=== PATIENT | female | born 1990 | race Caucasian/White ===

== ENCOUNTER 2019-05-16 10:20 | Outpatient (CLI) | payer BC, SELFPAY ==
--- NOTE | 2019-05-16 10:35 | XR_ITS ---
WS: [id number] Left wrist, 3 views, 05/16/2019 Clinical Data: L WRIST PAIN/OSTEOARTHRITIS Comparison: None. Findings: No fractures or dislocations are seen. The carpal bones are intact. There is no soft tissue swelling. The distal radius and ulna are not remarkable. XR/XR wrist LT min 3V* [id number] Impression: Negative left wrist.
== END 2019-05-16 10:21 | disposition home or self-care (01) ==
LOC: RAD 10:25
PROVIDERS: Family Provider Family Medicine; PCP Family Medicine; Visit Provider Nurse Practitioner Family
DX: M25.532 Pain in left wrist (principal)
CPT/HCPCS: 73110

== ENCOUNTER → 2019-09-08 09:50 | Outpatient (BNVA) | payer BC, SELFPAY | PROVIDERS: Family Provider Family Medicine; PCP Family Medicine; Visit Provider Obstetrics & Gynecology | DX: Z01.419 Encounter for gynecological examination (general) (routine) without abnormal findings (principal); Z78.9 Other specified health status | CPT/HCPCS: 88175 ==

== ENCOUNTER → 2019-09-24 10:38 | Outpatient (BNVA) | payer BC, SELFPAY | PROVIDERS: Family Provider Family Medicine; PCP Family Medicine; Visit Provider Specialist | DX: M25.532 Pain in left wrist (principal) | CPT/HCPCS: 73110 ==

== ENCOUNTER 2019-10-14 07:50 | Outpatient (CLI) | payer BC, SELFPAY ==
--- NOTE | 2019-10-14 08:09 | MR_ITS ---
WS: [id number] INDICATION: Left wrist pain. Fell off horse. TECHNIQUE: MRI left wrist gadolinium enhancement. Multiplanar multisequence imaging with coronal axia l and sagittal noncontrast coronal T1, coronal PD fat sat, and coronal STIR imaging. Coronal 3-D FSPG R. Axial T2 fat sat. Axial PD. Sagittal T1. FINDINGS: Normal anatomic alignment. Vitamin E markers in the area of concern. Normal radiocarpal dwight nt. Normal scaphoid and lunate. Subchondral cystic change at the radial scaphoid and radiolunate narciso culations. Normal scapholunate interval. TFCC is normal in appearance. Normal ulna collateral and rad ial collateral ligaments. Radial styloid is normal in appearance. Normal DRUJ Proximal and distal carpal row are otherwise normal in appearance. Partially visualized metacarpals a re normal in appearance. Distal radius and ulna are normal. Normal carpal tunnel. Normal extensor and flexor retinaculum. Extensor carpi ulnaris is normal in shelly earance. No other significant findings. MR/MR wrist LT wo con* [id number] IMPRESSION: 1. No evidence of avascular necrosis. Mild degenerative cystic changes involvi ng the radial scaphoid and radial lunate articulations. 2. Normal scapholunate interval and scapholunate ligaments. 3. Normal TFCC and DRUJ. 4. Ulnar collateral and radial collateral ligaments are normal in appearance. 5. Normal extensor and flexor compartment tendons and carpal tunnel. 6. No other significant findings.
== END 2019-10-14 07:51 | disposition home or self-care (01) ==
PROVIDERS: Family Provider Family Medicine; PCP Family Medicine; Visit Provider Specialist
DX: M25.532 Pain in left wrist (principal); W19.XXXA Unspecified fall, initial encounter
CPT/HCPCS: 73221

== ENCOUNTER → 2020-05-11 09:29 | Outpatient (BNVA) | payer BC, SELFPAY | PROVIDERS: Family Provider Family Medicine; PCP Family Medicine; Visit Provider Obstetrics & Gynecology | DX: Z32.01 Encounter for pregnancy test, result positive (principal) | CPT/HCPCS: 81025 ==

== ENCOUNTER → 2020-06-08 13:59 | Outpatient (BNVA) | payer BC, MEDICAID, SELFPAY | PROVIDERS: Family Provider Family Medicine; PCP Family Medicine; Visit Provider Obstetrics & Gynecology | DX: O09.91 Supervision of high risk pregnancy, unspecified, first trimester (principal) | CPT/HCPCS: 80307; 84315; 85025; 86592; 86762; 86803; 86850; 86900; 87086; 87340 ==

== ENCOUNTER → 2020-06-23 11:51 | Outpatient (BNVA) | payer BC, MEDICAID, SELFPAY | PROVIDERS: Family Provider Family Medicine; PCP Family Medicine; Visit Provider Obstetrics & Gynecology | DX: O99.611 Diseases of the digestive system complicating pregnancy, first trimester; Z12.4 Encounter for screening for malignant neoplasm of cervix; O99.211 Obesity complicating pregnancy, first trimester; O34.219 Maternal care for unspecified type scar from previous cesarean delivery; K90.0 Celiac disease; Z3A.12 12 weeks gestation of pregnancy | CPT/HCPCS: 84315; 87491; 87591; 88175 ==

== ENCOUNTER → 2020-10-18 14:59 | Outpatient (BNVA) | payer BC, MEDICAID, SELFPAY | PROVIDERS: Family Provider Family Medicine; PCP Family Medicine; Visit Provider Obstetrics & Gynecology | DX: O09.92 Supervision of high risk pregnancy, unspecified, second trimester (principal); Z3A.00 Weeks of gestation of pregnancy not specified | CPT/HCPCS: 82950; 85025 ==

== ENCOUNTER → 2020-12-09 09:05 | Outpatient (BNVA) | payer BC, MEDICAID, SELFPAY | PROVIDERS: Family Provider Family Medicine; PCP Family Medicine; Visit Provider Obstetrics & Gynecology | DX: O09.92 Supervision of high risk pregnancy, unspecified, second trimester (principal); Z3A.00 Weeks of gestation of pregnancy not specified | CPT/HCPCS: 84315; 87081 ==

== ENCOUNTER 2020-12-18 06:20 | Inpatient (IN) | payer BC, MEDICAID, SELFPAY ==
[2020-12-17] VITALS (9 sets, daily range): BP systolic 125–145; BP diastolic 69–91; PULSE 82–93; RESP 16–17; TEMP 36.9–37.2; O2SAT 97–99; BMI 36.5
[2020-12-17 15:39] LABS: Charge for UA Resulting for Rev
[2020-12-17 15:44] LABS: Basophils % 0.2 %; Eosinophils # 0.1 10^3/uL (0.0-0.8); Eosinophils % 1.3 %; Hematocrit 34.2 % (37.0-47.0); Hemoglobin 11.5 g/dL (11.5-15.3); Lymphocytes # 1.6 10^3/uL (0.8-4.8); Lymphocytes % 14.3 %; Mean Corpuscular HGB Conc 33.6 g/dL (30.0-36.0); Mean Corpuscular Hemoglobin 28.9 pg (28.0-34.0); Mean Corpuscular Volume 85.9 fl (81-99); Mean Platelet Volume 10.2 fL (7.4-10.4); Monocytes # 0.5 10^3/uL (0.2-0.9); Monocytes % 4.8 %; Neutrophils # 8.71 10^3/uL (1.8-7.7); Neutrophils % 78.5 %; Nucleated Red Blood Cells % 0 %; Platelet Count 276 10^3/cmm (130-400); Red Blood Count 3.98 10^6/uL (4.1-5.3); Red Cell Distribution Width 13.4 % (12.1-15.1); White Blood Count 11.1 10^3/uL (4.0-10.0)
[2020-12-17 16:06] LABS: Add Urine Microscopic? YES; Bilirubin Urine Neg (Negative); Blood Urine Neg (Negative); Glucose Urine UA Norm (Normal); Ketones Urine Negative (Negative); Leukocyte Esterase Urine 1+ (Negative); Nitrate Urine Negative (Negative); Protein Urine Neg (Negative); Specific Gravity, Urine 1.005 (1.005-1.030); Urine Appearance SL Hazy (CLEAR); Urine Color Straw (Yellow); Urobilinogen Urine Norm (Negative); pH Urine 7 (5-7)
[2020-12-17 16:12] LABS: WBC Urine 0-4 /hpf (0-5)
[2020-12-17 16:13] LABS: Add Urine Culture? No; Bacteria Urine TRACE /hpf
[2020-12-17 16:17] LABS: Alanine Aminotransferase 8 U/L (0-33); Albumin Level 3.2 g/dL (3.5-5.2); Alkaline Phosphatase 188 IU/L (35-105); Anion Gap 14.6 (5-19); Aspartate Amino Transferase 10 U/L (0-32); Blood Urea Nitrogen 4 mg/dL (6-20); Calcium 8.3 mg/dL (8.5-10.5); Carbon Dioxide 21 mmol/L (22-29); Chloride 103 mmol/L (98-107); Globulin 2.8 g/dL (1.3-4.6); Glucose 95 mg/dL (65-115); Osmolality Calculated 277 mOsm/kg (285-295); Potassium 3.6 mmol/L (3.5-5.1); Sodium 135 mmol/L (136-145); Total Bilirubin 0.2 mg/dL (0.15-1.2); Uric Acid 3.6 mg/dL (2.4-5.7)
[2020-12-17 16:19] LABS: Urine Creatinine 37 mg/dL (28-217); Urine Protein Random 6 mg/dL
[2020-12-17 16:23] LABS: UPRO/UCREAT Ratio 0.16 mg/mg CR
--- NOTE | 2020-12-17 21:20 | PM.OPHPUD ---
Labor & Delivery H&P Update Date of Procedure: December 17, 2020 Date H&P Performed: 12/16/20 H&P update information: I have reviewed H&P completed within last 30 days, I have examined patient prior to procedure and Changes to prior documentation as noted here Changes to previous documentation: The patient has elevated blood pressures and had some decelerations while in triage. Preeclampsia work up is negative. Admission Diagnosis: Preop diagnosis: iup at 37 2/7 weeks.
--- NOTE | 2020-12-17 21:51 | PC.NURSE ---
Vital signs obtained at this time. Pt was in a right lateral position upon entering the room. Patient moved to a semi fowlers position for bp. No further needs were voiced by patient and significant other at this time.
[2020-12-18] VITALS (15 sets, daily range): BP systolic 111–138; BP diastolic 63–89; PULSE 72–92; RESP 16–17; TEMP 35.9–36.8; O2SAT 98–99
--- NOTE | 2020-12-18 06:12 | PM.PN ---
Vitals/I&O/Wt Last Vital Signs Temp 96.6 F L 12/18/20 06:08 Pulse 74 12/18/20 04:00 Resp 16 12/18/20 04:00 BP 111/63 12/18/20 04:00 Pulse Ox 98 12/18/20 04:00 Weight last 48 hrs Weight 233 lb Physical Exam Narrative: EXAM NARRATIVE: The patient denies any concerns this morning. Blood pressures have all been normal over night. The patient states that she was unable to sleep overnight. We discussed plan for induction today. Plan easi cath placement today. Const: COMMON NORMALS: no acute distress, average body habitus, patient oriented x3, no limitations, healthy appearing, alert and well nourished GENERAL APPEARANCE: cooperative, comfortable, well kempt and well developed ORIENTATION/CONSCIOUSNESS: Yes awake, Yes oriented to person, Yes oriented to place and Yes oriented to time Resp: COMMON NORMALS: normal respiratory effort EFFORT & INSPECTION: Yes able to speak in complete sentences GI: COMMON NORMALS: Soft to palpation and non-tender PALPATION: Yes Soft to palpation Extremity: COMMON NORMALS: no clubbing, cyanosis or edema and no calf tenderness Neuro: COMMON NORMALS: patient oriented x3 SENSORIUM/ORIENTATION: Yes alert, Yes oriented to person, Yes oriented to place and Yes oriented to time Psych: APPEARANCE: Yes well kempt Data : 12/17/20 15:25 12/17/20 15:25 Attestations Medical Necessity Statement*: The patient will be here at least two midnights Coding Level of Care Code Acute 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
[2020-12-18] MEDS: diphenhydrAMINE 25 mg Capsule PO (23:56)
[2020-12-19] VITALS (120 sets, daily range): BP systolic 98–152; BP diastolic 53–101; PULSE 71–110; RESP 17; TEMP 36.8–37.1
--- NOTE | 2020-12-19 00:35 | PM.OBGYPN ---
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 Her blood pressures have remained normal with an occasional high. status is overall very reassuring with category 1 tracing. Labor: Amniotic Membrane Status: Intact Monitor Mode: External Contraction Pattern: Absent Vitals/I&O/Wt Last Vital Signs Temp 98.1 F 12/18/20 20:00 Pulse 90 12/18/20 20:00 Resp 16 12/18/20 20:00 BP 138/89 12/18/20 20:00 Pulse Ox 98 12/18/20 20:00 Weight last 48 hrs Weight 233 lb Physical Exam : MANUAL OB EXAM: dilated 3 cm and effaced 75% AMNIOTIC FLUID: clear OTHER: AROM clear to start induction. Data : 12/17/20 15:25 12/17/20 15:25 A&P Assessment and plan (1) Desires (vaginal after ) trial: induction started with AROM due to status cervix has made significant change from clinic Status: Acute (2) GBS (group B Streptococcus carrier), +RV culture, currently : start ampicillin prophylaxis Status: Acute (3) Labile blood pressure: continue to monitor no signs or symptoms of preeclampsia. Status: Acute Attestations Medical Necessity Statement*: she has already been here two midnights. Coding Level of Care Code Acute Public Health Professor for Chg Fwd Diagnoses Desires (vaginal after ) trial O34.219 GBS (group B Streptococcus carrier), +RV culture, currently O99.820 Labile blood pressure R09.89
[2020-12-19 01:50] LABS: Basophils % 0.3 %; Eosinophils # 0.1 10^3/uL (0.0-0.8); Eosinophils % 1.2 %; Hematocrit 35.7 % (37.0-47.0); Hemoglobin 11.8 g/dL (11.5-15.3); Lymphocytes # 2.1 10^3/uL (0.8-4.8); Lymphocytes % 20.2 %; Mean Corpuscular HGB Conc 33.1 g/dL (30.0-36.0); Mean Corpuscular Hemoglobin 28.6 pg (28.0-34.0); Mean Corpuscular Volume 86.7 fl (81-99); Mean Platelet Volume 10.6 fL (7.4-10.4); Monocytes # 0.5 10^3/uL (0.2-0.9); Monocytes % 4.7 %; Neutrophils # 7.63 10^3/uL (1.8-7.7); Neutrophils % 72.6 %; Nucleated Red Blood Cells % 0 %; Platelet Count 266 10^3/cmm (130-400); Red Blood Count 4.12 10^6/uL (4.1-5.3); Red Cell Distribution Width 13.6 % (12.1-15.1); White Blood Count 10.5 10^3/uL (4.0-10.0)
[2020-12-19] MEDS: dextrose 5%-lactated ringers 1,000 ML 125 ML IV ×2 (02:03→13:04)
[2020-12-19] MEDS: ampicillin 2,000 MG in sodium chloride 0.9% (plus) 50 ML 100 MG IV (02:03)
[2020-12-19] MEDS: lactated ringers 1,000 ML 999 ML IV (04:00)
--- NOTE | 2020-12-19 04:58 | P.ANESASSM_ITS ---
Pre-Anesthetic Assessment Pre-Anesthetic Assessment: Height/Weight: Height 1.7 m Weight 105.687 kg Temp Pulse Resp BP Pulse Ox 98.2 F 80 16 113/69 99 12/18/20 22:00 12/19/20 04:46 12/18/20 22:00 12/19/20 04:46 12/18/20 22:00 Preop Diagnosis: iup at 37 2/7 weeks. Proposed Procedure: epidural Was Beta David taken within 24 hours: N/A Was Clonidine taken within 24 hours: N/A Social: Social History: No alcohol and No tobacco Exam: Pre-Anes Outpt Exam: alert, oriented x 3, clear to auscultation bilaterally and regular rate & rhythm Airway: Submandibular: WNL Cervical ROM: WNL MP: 2 Dentition: Full Pulmonary: Pulmonary: None reported CV/HEM: CV/HEM: HTN : : None reported Hepatic: Hepatic: None reported GI: GI: GERD Metabolic: Metabolic: None reported Musc/skel: Musc/skel: None reported Neuropsych: Neuropsych: Anxiety Anesthetic Plan: ASA status: 2 Anesthesia: Regional (specify below) Risk of > 500 ml blood loss (7ml/kg in children): No Meds/Allergies Current Medications: Current Medications Generic Name Dose Route Start Last Admin Trade Name Freq PRN Reason Stop Dose Admin Diphenhydramine HC l 25 mg 12/18/20 23:23 12/18/20 23:56 Diphenhydramine 25 Mg Capsule PO 25 mg Q4H PRN Administration ITCHING Dextrose/Lactated Ringer's 1,000 mls @ 125 m ls/hr 12/19/20 00:45 12/19/20 02:03 Dextrose 5%-Lact ated Ringers IV 125 mls/hr .Q8H RONALD Administration PFSH Anesthesia PFSH: Medical History Celiac disease No pertinent past medical history neghx:htn,dm,thyroid,dvt/pe,herpes. 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 Surgical History H/O section (~2017) Family History Father Heart disease Mother Skin cancer Diabetes Hyperlipidemia Grandmother Breast cancer Paternal grandmother Denies family history of Colon cancer Ovarian cancer Family history of thyroid problem Hypertension Uterine cancer Stroke Social History Smoking and tobacco status: never smoked Alcohol intake: never Female Reproductive History: : 3 Data Anesthesia CBC & Chem 7: 12/19/20 01:00 12/17/20 15:25 Other Labs: Laboratory Results - last 48 hr 12/17/20 12/17/20 12/17/20 15:25 15:25 15:25 WBC 11.1 H RBC 3.98 L Hgb 11.5 Hct 34.2 L MCV 85.9 MCH 28.9 MCHC 33.6 RDW 13.4 Plt Count 276 MPV 10.2 Neut % (Auto) 78.5 Lymph % (Auto) 14.3 Schleicher % (Auto) 4.8 Eos % (Auto) 1.3 Baso % (Auto) 0.2 Neut # (Auto) 8.71 H Lymph # (Auto) 1.6 Schleicher # (Auto) 0.5 Eos # (Auto) 0.1 Baso # (Auto) 0.0 Nucleated RBC % (auto) 0 Nucleated RBCs # 0.0 Sodium Potassium Chloride Carbon Dioxide Anion Gap BUN Creatinine GFR Calculation Glucose Calculated Osmolality Uric Acid Calcium Total Bilirubin AST ALT Alkaline Phosphatase Total Protein Albumin Globulin Urine Color Straw Urine Appearance Sl hazy Urine pH 7 Ur Specific Premium 1.005 Urine Protein Neg Urine Glucose (UA) Norm Urine Ketones Negative Urine Blood Neg Urine Nitrate Negative Urine Bilirubin Neg Urine Urobilinogen Norm Ur Leukocyte Esterase 1+ H Urine RBC Not Reportable Urine WBC 0-4 H Ur Squamous Epith Cells 5-10 H Amorphous Sediment Not Reportable Urine Bacteria Trace U Random Total Protein 6 Urine Creatinine 37 Protein/Creatinin Ratio 0.16 12/17/20 12/19/20 15:25 01:00 WBC 10.5 H RBC 4.12 Hgb 11.8 Hct 35.7 L MCV 86.7 MCH 28.6 MCHC 33.1 RDW 13.6 Plt Count 266 MPV 10.6 H Neut % (Auto) 72.6 Lymph % (Auto) 20.2 Schleicher % (Auto) 4.7 Eos % (Auto) 1.2 Baso % (Auto) 0.3 Neut # (Auto) 7.63 Lymph # (Auto) 2.1 Schleicher # (Auto) 0.5 Eos # (Auto) 0.1 Baso # (Auto) 0.0 Nucleated RBC % (auto) 0 Nucleated RBCs # 0.0 Sodium 135 L Potassium 3.6 Chloride 103 Carbon Dioxide 21 L Anion Gap 14.6 BUN 4 L Creatinine 0.3 L GFR Calculation 263.0 H Glucose 95 Calculated Osmolality 277 L Uric Acid 3.6 Calcium 8.3 L Total Bilirubin 0.2 AST 10 ALT 8 Alkaline Phosphatase 188 H Total Protein 6.0 L Albumin 3.2 L Globulin 2.8 Urine Color Urine Appearance Urine pH Ur Specific Premium Urine Protein Urine Glucose (UA) Urine Ketones Urine Blood Urine Nitrate Urine Bilirubin Urine Urobilinogen Ur Leukocyte Esterase Urine RBC Urine WBC Ur Squamous Epith Cells Amorphous Sediment Urine Bacteria U Random Total Protein Urine Creatinine Protein/Creatinin Ratio Cardiac Studies: No Data to Display
--- NOTE | 2020-12-19 05:43 | ANES.PROC ---
Anesthesia Procedures Procedure/Date: 12/19/20 epidural Procedure Narrative: epidural complete, attempts x 2, bolus given, epidural pump initiated with FIELD TECHNICAL ASSISTANT education given, vitals taken during procedure using OBIX system and satisfactory throughout, patient admits to decrease pain, report of procedure to OB RN Epidural: Time Out Performed: Yes Consents Signed: Procedure Consent Consent: requested by attending/covering physician, from patient, risks and benefits reviewed and patient agrees to proceed Lumbar Level: L3-L4 Epidural position: sitting Epidural procedure: sterile prep of area, 1% lidocaine to numb the area (3 mL), 18 g needle, negative for paresthesia passed, neg for paresthesia, test dose given, 1.5% xylocaine 1:200k epi (5 mL), 0.2% Ropivacaine bolus ml (5 mL), placed PCEA, no systemic response, sterile dressing applied, L.U.D. no apparent complications and 0.2% Ropiavacaine @ mls/hr (13 mL/hr)
[2020-12-19] MEDS: ampicillin 1,000 MG in sodium chloride 0.9% (plus) 50 ML 100 MG IV ×4 (06:03→19:07)
[2020-12-19] MEDS: ondansetron 2 mg/ML SDV 2 mL 4 MG IVP (10:13)
[2020-12-19] MEDS: oxytocin 30 UNIT/500 ML BAG IV (11:39)
--- NOTE | 2020-12-19 20:27 | PM.DELIVERY ---
Delivery Note: Date of delivery: December 19, 2020 Pre-delivery diagnoses: iup at 37 3/7 weeks, labile blood pressures Post-delivery diagnoses: same- delivered Procedure: Op report anesthesia: Epidural Delivering Physician: mariia Estimated blood loss (mL): 25 Findings: term male in the cephalic presentation. 5 doses of Ampicillin for GBS prophylaxis Pre-Delivery Course: The patient was admitted for induction at term for labile blood pressures. There were no beds available and so the patient was admitted as antipartum and monitored until an induction could be started. She had cervical change and she was 3-4 cm on exam at the start of induction. She was given GBS prophylaxis and AROM was performed. She only made a small amount of change in about 8 hours, so low dose pitocin was started. The max dose was 6 units. She received an epidural for pain management. She began having stronger contractions and had complete cervical dilation. The pitocin was stopped. Delivery: The patient had complete cervical dilation and began to push. The head delivered in the [ ] position over an intact perineum under epidural anesthesia. The nose and mouth were bulb suctioned. The shoulders and body delivered atraumatically. The baby was placed onto the mother's abdomen. The cord was clamped and cut. There was terminal meconium at delivery. The placenta delivered spontaneously. It was inspected and found to be intact. Inspection of the perineum revealed a small second-degree laceration. This was repaired in the usual fashion. Estimated blood loss 25 mL. Apgars on baby were 8 at 1 minute and 9 at 5 minutes. Weight of baby is 6 pounds 13 ounces. Mother and baby were stable post delivery. A&P Assessment and plan (1) Desires (vaginal after ) trial: Status: Acute (2) GBS (group B Streptococcus carrier), +RV culture, currently : Status: Acute (3) Labile blood pressure: Status: Acute Coding Level of Care Code Acute Emergency Medicine Physician for Chg Fwd Diagnoses Desires (vaginal after ) trial O34.219 GBS (group B Streptococcus carrier), +RV culture, currently O99.820 Labile blood pressure R09.89
[2020-12-20] VITALS (10 sets, daily range): BP systolic 95–127; BP diastolic 52–85; PULSE 74–92; RESP 16; TEMP 36.8–36.9
--- NOTE | 2020-12-20 07:27 | P.PN_ITS ---
Vitals/I&O/Wt Last Vital Signs Temp 98.4 F 12/20/20 06:00 Pulse 76 12/20/20 06:08 Resp 17 12/19/20 09:43 BP 107/60 12/20/20 06:08 Pulse Ox 99 12/18/20 22:00 12/19/20 12/20/20 12/20/20 22:59 06:59 14:59 Output Total 1400 / 1400 600 / 2000 Balance -1400 / -192.483 -600 / -792.483 Physical Exam Narrative: EXAM NARRATIVE: The patient is doing well this morning. She is having some gas pain as well as low back pain. No other concerns. Const: COMMON NORMALS: no acute distress, patient oriented x3, no limitations, healthy appearing and alert GENERAL APPEARANCE: cooperative, comfortable, well kempt and well developed ORIENTATION/CONSCIOUSNESS: Yes awake, Yes oriented to person, Yes oriented to place and Yes oriented to time Resp: COMMON NORMALS: normal respiratory effort EFFORT & INSPECTION: Yes able to speak in complete sentences GI: COMMON NORMALS: Soft to palpation and non-tender PALPATION: Yes Soft to palpation Extremity: COMMON NORMALS: no clubbing, cyanosis or edema and no calf tenderness Neuro: COMMON NORMALS: patient oriented x3 SENSORIUM/ORIENTATION: Yes alert, Yes oriented to person, Yes oriented to place and Yes oriented to time Psych: APPEARANCE: Yes well kempt Urinary Catheter Management^: Vilchis Latex Free: Cath Placed During This Visit: yes, but has since been removed by the nurse Reason for Continuing Indwelling Catheter: Other Urinary Catheter Date of Insertion: 12/19/20 Urinary Catheter Time of Insertion: 06:15 Date Urinary Catheter Removed: 12/19/20 Time Urinary Catheter Discontinued: 19:59 Data : 12/19/20 01:00 12/17/20 15:25 Attestations Medical Necessity Statement*: The patient had a vaginal delivery last night. she will stay one more night. 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
--- NOTE | 2020-12-20 07:40 | ANE.PACU2 ---
Inpatient post-anesthesia follow up: Airway intact: Yes Vital signs: Temperature 98.4 F Pulse Rate 76 Respiratory Rate 17 Blood Pressure 107/60 Pulse Oximetry 99 Oxygen Delivery Me thod Room Air Oxygen Flow Rate Fraction of Inspir ed Oxygen Hydration adequate: Yes Nausea and vomiting: No Pain level: 2 Mental status: Baseline
[2020-12-20] MEDS: docusate sodium 100 mg Capsule PO (09:10)
[2020-12-20] MEDS: prenatal vitamin Capsule 1 CAP PO (09:10)
[2020-12-20] MEDS: ibuprofen 800 mg tablet PO ×2 (09:10→16:17)
[2020-12-20 11:18] LABS: Hemoglobin 10.8 g/dL (11.5-15.3); Mean Corpuscular HGB Conc 32.7 g/dL (30.0-36.0); Mean Corpuscular Volume 88.7 fl (81-99); Mean Platelet Volume 10.6 fL (7.4-10.4); Platelet Count 213 10^3/cmm (130-400); Red Blood Count 3.72 10^6/uL (4.1-5.3); Red Cell Distribution Width 13.8 % (12.1-15.1); White Blood Count 12.3 10^3/uL (4.0-10.0)
--- NOTE | 2020-12-20 11:57 | PM.DCS ---
Discharge Providers Date of Admission: 12/18/20 06:20 Date of Discharge: December 20, 2020 Attending Provider at Admission: Sirena Mcdonnell MD Attending Provider at Discharge: Sirena Mcdonnell MD Primary Care Provider: Juliana Miller DO Diagnoses at Discharge Discharge Diagnosis (1) state: Status: Acute Reason for Visit Reason for Visit: elevated blood pressure Hospital Course Hospital Course The patient presented to labor and delivery with complaints of increased blood pressure at home. She took a nap and was still feeling poorly. She was found to have some elevated blood pressures in triage. Her preeclampsia labs were normal. She was admitted for induction. She had a previous and desired TOLAC. She had spontaneous delivery of a term . She did well and requested discharge on day #1 Physical Exam Urinary Catheter Management^: Vilchis Latex Free: Cath Placed During This Visit: yes, but has since been removed by the nurse Reason for Continuing Indwelling Catheter: Other Urinary Catheter Date of Insertion: 12/19/20 Urinary Catheter Time of Insertion: 06:15 Date Urinary Catheter Removed: 12/19/20 Time Urinary Catheter Discontinued: 19:59 Discharge Data Data Completed and Pending: Labs from last 24 hours 12/20/20 09:15 WBC 12.3 H RBC 3.72 L Hgb 10.8 L Hct 33.0 L MCV 88.7 MCH 29.0 MCHC 32.7 RDW 13.8 Plt Count 213 MPV 10.6 H Vitals: Last Vital Signs Temp 98.4 F 12/20/20 06:00 Pulse 82 12/20/20 09:12 Resp 17 12/19/20 09:43 BP 101/54 12/20/20 09:12 Pulse Ox 99 12/18/20 22:00 Discharge Plan Discharge Patient Disposition: Home Condition: Stable Prescriptions: Continued prenat.vits,patricia,[id number] Tablet 1 tab PO DAILY RF: 0 Discharge Orders: Discharge Order (Routine); Ordered 12/20/20 Ordered By: Sirena Mcdonnell Patient Instructions: Opioid Safety Discharge Attestations Time Spent in Discharge Care*: less than 30 min Quality Metrics Clinical Quality Measures During this hospital stay, did patient experience: None Coding Level of Care Code Acute Chg FW DC note Diagnoses state Z39.2
== END 2020-12-20 21:15 | disposition home or self-care (01) | DRG 807 ==
LOC: OPOB 12-19 12:49 → OBGYN 12-19 13:41
PROVIDERS: Admitting Provider Obstetrics & Gynecology; Family Provider Family Medicine; PCP Family Medicine; Visit Provider Obstetrics & Gynecology
DX: O16.4 Unspecified maternal hypertension, complicating childbirth (principal); Z37.0 Single live birth; O99.214 Obesity complicating childbirth; O99.824 Streptococcus B carrier state complicating childbirth; O77.0 Labor and delivery complicated by meconium in amniotic fluid; O70.1 Second degree perineal laceration during delivery; Z3A.37 37 weeks gestation of pregnancy; O34.219 Maternal care for unspecified type scar from previous cesarean delivery; O75.89 Other specified complications of labor and delivery; K90.0 Celiac disease
CPT/HCPCS: 36415; 51702; 59025; 59409; 80053; 81001; 81003; 82570; 84156; 84550; 85025; 85027; 96374; 99211; J0290; J2405; J2795

== ENCOUNTER → 2021-02-11 10:26 | Outpatient (BNVA) | payer BC, MEDICAID, SELFPAY | PROVIDERS: Family Provider Family Medicine; PCP Family Medicine; Visit Provider Obstetrics & Gynecology | DX: Z20.822 Contact with and (suspected) exposure to COVID-19 (principal); Z01.818 Encounter for other preprocedural examination | CPT/HCPCS: 87635 ==

== ENCOUNTER 2021-02-15 06:42 | Day surgery (SDC) | payer BC, MEDICAID, SELFPAY ==
[2021-02-14 10:07] VITALS: BMI 36.0
[2021-02-15] VITALS (8 sets, daily range): BP systolic 114–147; BP diastolic 73–87; PULSE 73–90; RESP 13–18; TEMP 36.2–36.4; O2SAT 91–952
--- NOTE | 2021-02-15 06:26 | ANES.PREANE2 ---
Pre-Anesthetic Assessment Pre-Anesthetic Assessment: Height/Weight: Height 1.7 m Weight 104.326 kg Preop Diagnosis: iup at 37 2/7 weeks. Proposed Procedure: Operation Date: 02/15/21 08:00 Proposed Procedures p Laparoscopic Salpingectomy 96687 Z30.2(Bilateral) - Sirena Mcdonnell MD Was Beta David taken within 24 hours: N/A Was Clonidine taken within 24 hours: N/A Social: Social History: No tobacco Exam: Pre-Anes Outpt Exam: alert, oriented x 3, clear to auscultation bilaterally and regular rate & rhythm Airway: Submandibular: WNL Cervical ROM: WNL MP: 2 History/ROS: No significant history except as noted and No significant complaints Metabolic: Metabolic: Morbid obesity Comments: BMI 36 Neuropsych: Neuropsych: Depression Anesthetic Plan: ASA status: 3 Anesthesia: Anesthesia Evaluation and General Risk of > 500 ml blood loss (7ml/kg in children): No PFSH Anesthesia PFSH: Medical History Celiac disease No pertinent past medical history neghx:htn,dm,thyroid,dvt/pe,herpes. 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
[2021-02-15] MEDS: sodium chloride 0.9% 1,000 ML 30 ML IV (07:10)
[2021-02-15] MEDS: ketorolac 30 mg/mL INJ IVP (07:23)
--- NOTE | 2021-02-15 07:23 | W.PM.OPSUD ---
Surgery/Procedure H&P Update DATE OF PROCEDURE: February 15, 2021 DATE H&P PERFORMED: 02/11/21 H&P UPDATE INFORMATION: I have reviewed H&P completed within last 30 days, I have examined patient prior to procedure and No changes to prior documentation PREOP DIAGNOSIS: desires permananent sterilization PLANNED PROCEDURE: Operation Date: 02/15/21 08:00 Proposed Procedures p Laparoscopic Salpingectomy 20365 Z30.2(Bilateral) - Sirena Mcdonnell MD Related Problem List Diagnoses (1) Consultation for sterilization:
[2021-02-15 07:58] LABS: OR HCG Qualitative Urine Negative (Negative)
[2021-02-15 08:31] LABS: Basophils # 0.1 10^3/uL (0.0-0.1); Basophils % 0.6 %; Eosinophils # 0.3 10^3/uL (0.0-0.8); Eosinophils % 3.4 %; Hemoglobin 13.5 g/dL (11.5-15.3); Lymphocytes # 1.9 10^3/uL (0.8-4.8); Lymphocytes % 23.9 %; Mean Corpuscular HGB Conc 32.1 g/dL (30.0-36.0); Mean Corpuscular Hemoglobin 27.9 pg (28.0-34.0); Mean Corpuscular Volume 86.8 fl (81-99); Mean Platelet Volume 9.3 fL (7.4-10.4); Monocytes # 0.5 10^3/uL (0.2-0.9); Monocytes % 6.6 %; Neutrophils # 5.12 10^3/uL (1.8-7.7); Neutrophils % 64.9 %; Nucleated Red Blood Cells % 0 %; Platelet Count 392 10^3/cmm (130-400); Red Blood Count 4.84 10^6/uL (4.1-5.3); Red Cell Distribution Width 13.2 % (12.1-15.1); White Blood Count 7.9 10^3/uL (4.0-10.0)
[2021-02-15 08:50] LABS: Anion Gap 15.2 (5-19); Blood Urea Nitrogen 9 mg/dL (6-20); Calcium 9.4 mg/dL (8.5-10.5); Carbon Dioxide 26 mmol/L (22-29); Chloride 101 mmol/L (98-107); Glomerular Filtration Rate 145.9 mL/min (90-130); Glucose 83 mg/dL (65-115); Osmolality Calculated 284 mOsm/kg (285-295); Potassium 4.2 mmol/L (3.5-5.1); Sodium 138 mmol/L (136-145)
--- NOTE | 2021-02-15 09:23 | P.OP_ITS ---
Operative Report Date of procedure: February 15, 2021 Pre-op Diagnosis: desires permananent sterilization Post-op diagnosis: same Post-op Findings: normal appearing uterus, tubes and ovaries. Adhesions to the left pelvic sidewall Procedure Done: laparoscopic bilateral salpingectomy Specimens removed/disposition: bilateral fallopian tubes to pathology Surgeon: Sirena Mcdonnell Anesthesia: General Estimated blood loss (mL): 5 IV fluids (mL): 500 Urine output (mL): 300 Complications: none Condition: stable Disposition: PACU Brief History: The patient desired permanent sterilization Procedure: The patient was taken to the operating room where general anesthesia was administered and found to be adequate. She was prepped and draped in the normal sterile fashion in the dorsal lithotomy position in [facility]. A Vilchis catheter was placed. A weighted speculum was placed into the vagina and the anterior lip of the cervix grasped with a single-tooth tenaculum. A ZUMI uterine manipulator was placed. The gloves were changed and attention was turned to the laparoscopic portion of the case. A 5 mm infraumbilical incision was made. The 5 mm trocar was placed using the easy view trocar. Intra-abdominal placement was confirmed and CO2 gas was used to insufflate the abdomen. Using direct visualization and illumination of the abdominal wall, two 5 mm incisions were made low and lateral. One on the left and one on the right. The 5mm trochars were then placed under direct visualization. Using the uterine manipulator and the grasper, the fallopian tubes were identified. Using the laparoscopic cautery, the fallopian tube was clamped cauterized and cut. First on the right, then on the left. There was excellent hemostasis post removal of the bilateral tubes. Pictures were taken. All instruments were removed. The abdomen was desufflated. The incisions were closed with 4-0 Vicryl. The patient tolerated the procedure well. Sponge lap and needle counts were correct x3. She was taken to the recovery room in stable condition.
--- NOTE | 2021-02-15 09:30 | P.DS_ITS ---
Discharge Providers Date of Discharge: February 15, 2021 Attending Provider at Discharge: Sirena Mcdonnell MD Primary Care Provider: Juliana Miller DO Diagnoses at Discharge Discharge Diagnosis (1) Consultation for sterilization: Status: Acute (2) state: Status: Acute Reason for Visit Reason for Visit: Request sterilization Hospital Course Hospital Course The patient was admitted for surgery. She did well postoperatively and was ready for discharge Physical Exam Urinary Catheter Management^: Vilchis: Cath Placed During This Visit: yes, but has since been removed by the nurse Urinary Catheter Date of Insertion: 02/15/21 Urinary Catheter Time of Insertion: 08:25 Date Urinary Catheter Removed: 02/15/21 Time Urinary Catheter Discontinued: 09:00 Discharge Data Data Completed and Pending: Pending at discharge Category Date Time Status ES surgery / GI i mages Routine Exams 02/15/21 07:21 Taken Pathology: Surgic al [PTH] Routine Pth 02/15/21 09:24 Ordered Labs from last 24 hours 02/15/21 02/15/21 02/15/21 07:57 07:27 07:27 WBC 7.9 RBC 4.84 Hgb 13.5 Hct 42.0 MCV 86.8 MCH 27.9 L MCHC 32.1 RDW 13.2 Plt Count 392 MPV 9.3 Neut % (Auto) 64.9 Lymph % (Auto) 23.9 [place] % (Auto) 6.6 Eos % (Auto) 3.4 Baso % (Auto) 0.6 Neut # (Auto) 5.12 Lymph # (Auto) 1.9 [place] # (Auto) 0.5 Eos # (Auto) 0.3 Baso # (Auto) 0.1 Nucleated RBC % (a uto) 0 Nucleated RBCs # 0.0 Sodium 138 Potassium 4.2 Chloride 101 Carbon Dioxide 26 Anion Gap 15.2 BUN 9 Creatinine 0.5 GFR Calculation 145.9 H Glucose 83 Calculated Osmolal ity 284 L Calcium 9.4 Urine HCG, Qual Negative 02/15/21 07:17 WBC RBC Hgb Hct MCV MCH MCHC RDW Plt Count MPV Neut % (Auto) Lymph % (Auto) [place] % (Auto) Eos % (Auto) Baso % (Auto) Neut # (Auto) Lymph # (Auto) [place] # (Auto) Eos # (Auto) Baso # (Auto) Nucleated RBC % (a uto) Nucleated RBCs # Sodium Potassium Chloride Carbon Dioxide Anion Gap BUN Creatinine GFR Calculation Glucose Calculated Osmolal ity Calcium Urine HCG, Qual Cancelled Vitals: Last Vital Signs Temp 97.4 F L 02/15/21 09:21 Pulse 82 02/15/21 09:25 Resp 14 02/15/21 09:25 BP 132/85 02/15/21 09:25 Pulse Ox 952 H 02/15/21 09:25 Discharge Plan Discharge Patient Disposition: Home Condition: Stable Prescriptions: New hydrocodone-acetaminophen 5-325 mg tablet 1 tab PO Q6H Qty: 20 RF: 0 Continued prenat.vits,patricia,jup-hual-mulfs Tablet 1 tab PO DAILY RF: 0 paroxetine HCl 20 mg tablet 20 mg PO DAILY RF: 0 Discharge Orders: Discharge Order (Routine); Ordered 02/15/21 Ordered By: Sirena Mcdonnell Discharge Attestations Time Spent in Discharge Care*: less than 30 min Quality Metrics Clinical Quality Measures During this hospital stay, did patient experience: None Coding Level of Care Code Acute Chg DC note Diagnoses Consultation for sterilization Z30.09 state Z39.2
--- NOTE | 2021-02-15 09:31 | P.PCN_ITS ---
PACU note PACU note: VSS, Good respiratory effort, report to SUPERVISOR [employer] Post-Anesthesia Exam: awake
--- NOTE | 2021-02-15 09:31 | PM.PACU ---
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
[2021-02-15] MEDS: ondansetron 2 mg/ML SDV 2 mL 4 MG IVP (10:05)
[2021-02-15] MEDS: HYDROcodone-acetaminophen 5-325 mg Tablet 1 TAB PO (10:15)
--- NOTE | 2021-02-15 11:35 | ANE.PACU2 ---
Inpatient post-anesthesia follow up: Airway intact: Yes Vital signs: Temperature 97.2 F Pulse Rate 75 Respiratory Rate 15 Blood Pressure 141/79 Pulse Oximetry 96 Oxygen Delivery Me thod Room Air Oxygen Flow Rate Fraction of Inspir ed Oxygen Hydration adequate: Yes Nausea and vomiting: No Pain level: 2 Mental status: Baseline
== END 2021-02-15 10:44 | disposition home or self-care (01) ==
PROVIDERS: PCP Family Medicine; Visit Provider Obstetrics & Gynecology
PROC: (CPT 58661; principal; 2021-02-15 08:00)
DX: Z30.2 Encounter for sterilization (principal); N73.6 Female pelvic peritoneal adhesions (postinfective)
CPT/HCPCS: 58661; 36415; 80048; 81025; 84703; 85025; 88302; 96374; J0330; J0690; J1100; J1885; J2405; J2704; J2710; J3010; J3490; J7030

== ENCOUNTER 2022-03-13 14:27 | Emergency (ER) | payer OTHER, BC, SELFPAY ==
[2022-03-13 14:55] VITALS: BP 150/106; PULSE 83; RESP 16; TEMP 36.4; O2SAT 99
[2022-03-13 16:17] VITALS: BP 156/103; PULSE 98; RESP 16; O2SAT 97
--- NOTE | 2022-03-13 16:17 | PC.NURSE ---
WHILE WITH PT IN LOBBY PT IS IN NAD.
[2022-03-13 16:47] LABS: Basophils % 0.4 %; Eosinophils # 0.2 10^3/uL (0.0-0.8); Hematocrit 40.2 % (37.0-47.0); Hemoglobin 12.7 g/dL (11.5-15.3); Lymphocytes # 1.8 10^3/uL (0.8-4.8); Lymphocytes % 22.7 %; Mean Corpuscular HGB Conc 31.6 g/dL (30.0-36.0); Mean Corpuscular Hemoglobin 26.6 pg (28.0-34.0); Mean Corpuscular Volume 84.1 fl (81-99); Mean Platelet Volume 9.4 fL (7.4-10.4); Monocytes # 0.5 10^3/uL (0.2-0.9); Monocytes % 5.6 %; Neutrophils # 5.53 10^3/uL (1.8-7.7); Neutrophils % 68.7 %; Nucleated Red Blood Cells % 0 %; Platelet Count 366 10^3/cmm (130-400); Red Blood Count 4.78 10^6/uL (4.1-5.3); Red Cell Distribution Width 14.2 % (12.1-15.1); White Blood Count 8.1 10^3/uL (4.0-10.0)
[2022-03-13 17:12] LABS: Alanine Aminotransferase 37 U/L (0-33); Albumin Level 4.3 g/dL (3.5-5.2); Alkaline Phosphatase 119 U/L (35-105); Anion Gap 16.8 (5-19); Aspartate Amino Transferase 24 U/L (0-32); Blood Urea Nitrogen 6 mg/dL (6-20); Carbon Dioxide 26 mmol/L (22-29); Chloride 97 mmol/L (98-107); Globulin 4.4 g/dL (1.3-4.6); Glomerular Filtration Rate 144.9 mL/min (90-130); Glucose 88 mg/dL (65-115); Lipase 30 U/L (13-60); Osmolality Calculated 279 mOsm/kg (285-295); Potassium 3.8 mmol/L (3.5-5.1); Sodium 136 mmol/L (136-145); Total Bilirubin 0.3 mg/dL (0.15-1.2); Total Protein 8.7 g/dL (6.6-8.7)
--- NOTE | 2022-03-13 19:41 | W.ED.ABDPA2 ---
HPI - Abdominal Pain General: Chief Complaint: Abdominal Pain Stated Complaint: abd pain Time Seen by Provider: 03/13/22 19:41 History of Present Illness: 4-year-old female comes in today for complaints of epigastric discomfort for the last year. Patient reports worse symptoms over the last 2 days. Patient has had a history of 3 children. Patient does continue to have her gallbladder. Patient reports most of the time of the pain occurs after eating. Associated Symptoms: Reports nausea; Denies fever(s) Review of Systems Const: Denies: fever(s) Resp: Denies: dyspnea GI: Reports: abdominal pain and nausea PFS ED PFSH: Medical History Celiac disease No pertinent past medical history neghx:htn,dm,thyroid,dvt/pe,herpes. 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 Surgical History H/O section (~2017) Family History Father Heart disease Mother Skin cancer Diabetes Hyperlipidemia Grandmother Breast cancer Paternal grandmother Denies family history of Colon cancer Ovarian cancer Family history of thyroid problem Hypertension Uterine cancer Stroke Social History Smoking and tobacco status: never smoked Alcohol intake: never Physical Exam Const: COMMON NORMALS: alert HENMT: COMMON NORMALS: normocephalic HEAD & SCALP: normocephalic Neck/C-Spine: COMMON NORMALS: full ROM Resp: COMMON NORMALS: normal respiratory effort and clear to auscultation bilaterally AUSCULTATION: clear to auscultation bilaterally GI: COMMON NORMALS: Soft to palpation AUSCULTATION: Yes normoactive bowel sounds PALPATION: Yes Soft to palpation and Yes Tenderness to palpation present (GI) Details: RUQ : COMMON NORMALS: Yes no CVA tenderness BLADDER/KIDNEY EXAM: Yes no CVA tenderness Back/Pelvis: COMMON NORMALS: no CVA tenderness Neuro: SENSORIUM/ORIENTATION: Yes alert Skin: COMMON NORMALS: turgor normal GENERAL SKIN EXAM: turgor normal Course Vital Signs: Vital signs: Vital Signs Temperature 98.0 F 03/13/22 21:30 Pulse Rate 84 03/13/22 21:30 Respiratory Rate 16 03/13/22 21:30 Blood Pressure 119/83 03/13/22 21:30 Pulse Oximetry 99 03/13/22 21:30 Oxygen Delivery Me thod 03/13/22 21:30 MDM - Abdominal Pain Medical Decision Making 31-year-old female comes in today for complaints of nausea and right upper quadrant abdominal pain. Patient reports pain worse after eating. On exam abdomen soft with some right upper quadrant tenderness. Vital signs are normal. Differential diagnosis includes but not limited to gastritis, gallbladder disease, gallbladder obstruction, cholecystitis, pancreatitis. Laboratory values were unremarkable. Reviewed exam with patient with recommendations for treatment and follow-up. Patient wanted to go ahead and get an ultrasound of her gallbladder done it was ordered and noted gallstones without no signs of significant infection or occlusion. Labs also did not endorse infection or obstruction. Reviewed exam with patient with recommendations for follow-up with surgeon for further evaluation and plan for removal. Patient was agreeable to this plan, case management was requested to assist with this. Lab Data 03/13/22 16:22 03/13/22 16: Labs/Radiology: Laboratory Results WBC 8.1 10^3/uL (4.0-10.0) 03/13/22 16: RBC 4.78 10^6/uL (4.1-5.3) 03/13/22 16: Hgb 12.7 g/dL (11.5-15.3) 03/13/22 16: Hct 40.2 % (37.0-47.0) 03/13/22 16: MCV 84.1 fl (81-99) 03/13/22 16: MCH 26.6 pg (28.0-34.0) L 03/13/22 16: MCHC 31.6 g/dL (30.0-36.0) 03/13/22: RDW 14.2 % (12.1-15.1) 03/13/22 16: Plt Count 366 10^3/cmm (130-400) 03/13/22 16: MPV 9.4 fL (7.4-10.4) 03/13/22 16: Neut % (Auto) 68.7 % 03/13/22 16:22 Lymph % (Auto) 22.7 % 03/13/22 16:22 [place] % (Auto) 5.6 % 03/13/22 16:22 Eos % (Auto) 2.0 % 03/13/22 16:22 Baso % (Auto) 0.4 % 03/13/22 16:22 Neut # (Auto) 5.53 10^3/uL (1.8-7.7) 03/13/22 16: Lymph # (Auto) 1.8 10^3/uL (0.8-4.8) 03/13/22 16:22 [place] # (Auto) 0.5 10^3/uL (0.2-0.9) 03/13/22 16: Eos # (Auto) 0.2 10^3/uL (0.0-0.8) 03/13/22 16: Baso # (Auto) 0.0 10^3/uL (0.0-0.1) 03/13/22 16: Nucleated RBC % (auto) 0 % 03/13/22 16: Nucleated RBCs # 0.0 /100WBC 03/13/22 16:22 Sodium 136 mmol/L (136-145) 03/13/22 16:22 Potassium 3.8 mmol/L (3.5-5.1) 03/13/22 16:22 Chloride 97 mmol/L (98-107) L 03/13/22 16:22 Carbon Dioxide 26 mmol/L (22-29) 03/13/22 16:22 Anion Gap 16.8 (5-19) 03/13/22 16:22 BUN 6 mg/dL (6-20) 03/13/22 16:22 Creatinine 0.5 mg/dL (0.5-0.9) 03/13/22 16:22 GFR Calculation 144.9 mL/min (90-130) H 03/13/22 16:22 Glucose 88 mg/dL (65-115) 03/13/22 16:22 Calculated Osmolality 279 mOsm/kg (285-295) L 03/13/22 16:22 Calcium 10.0 mg/dL (8.5-10.5) 03/13/22 16:22 Total Bilirubin 0.3 mg/dL (0.15-1.2) 03/13/22 16: AST 24 U/L (0-32) 03/13/22 16:22 ALT 37 U/L (0-33) H 03/13/22 16:22 Alkaline Phosphatase 119 U/L (35-105) H 03/13/22 16:22 Total Protein 8.7 g/dL (6.6-8.7) 03/13/22 16:22 Albumin 4.3 g/dL (3.5-5.2) 03/13/22 16: Globulin 4.4 g/dL (1.3-4.6) 03/13/22 16: Lipase 30 U/L (13-60) 03/13/22 16:22 HCG, Qual Negative (Negative) 03/13/22 20:00 Urine Color Yellow (Yellow) 03/13/22 20:00 Urine Appearance Clear (CLEAR) 03/13/22 20:00 Urine pH 7 (5-7) 03/13/22 20:00 Ur Specific [place] 1.010 (1.005-1.030) 03/13/22 20:00 Urine Protein Neg (Negative) 03/13/22 20:00 Urine Glucose (UA) Norm (Normal) 03/13/22 20:00 Urine Ketones Negative (Negative) 03/13/22 20:00 Urine Blood Neg (Negative) 03/13/22 20:00 Urine Nitrate Negative (Negative) 03/13/22 20:00 Urine Bilirubin Neg (Negative) 03/13/22 20:00 Urine Urobilinogen Norm mg/dL (Negative) 03/13/22 20:00 Ur Leukocyte Esterase Negative (Negative) 03/13/22 20:00 Discharge Plan Discharge Patient Disposition: Home Clinical Impression: Cholelithiases Qualifiers: Cholelithiasis location: gallbladder Cholecystitis presence: without cholecystitis Biliary obstruction: without biliary obstruction Qualified Code(s): K80.20 - Calculus of gallbladder without cholecystitis without obstruction Condition: Stable Prescriptions: New dicyclomine 20 mg tablet 20 mg PO TID PRN (Reason: gastrointestinal spasms or cramping) Qty: 30 0RF ondansetron 4 mg tablet,disintegrating 4 mg PO Q8H PRN (Reason: nausea and vomiting) Qty: 10 0RF No Action prenat.vits,patricia,jht-ysdc-[id number] Tablet 1 tab PO DAILY paroxetine HCl 20 mg tablet 20 mg PO DAILY Discharge Orders: Discharge ED (Routine); Ordered 03/13/22 Ordered By: Ad Su Referrals: Adeline Brunner FNP [Primary Care Provider] - Discharge Diet: Advance as tolerated Discharge Activity: Increase activity as tolerated Patient Instructions: Gallstones (ED) Activity Restrictions/Additional Instructions: Home and rest. Eat a light diet. Drink plenty of fluids. Follow-up with surgeon for further evaluation and treatment. Return to ER for worsening symptoms such as uncontrolled pain, persistent nausea and vomiting, or high fever, or new concerns. Coding Level of Care Code ED Director Of Medical Review for Chg Fwd Exam Detailed
--- NOTE | 2022-03-13 20:12 | USR_ITS ---
PROCEDURE INFORMATION: Exam: US Abdomen, Limited; Right Upper Quadrant Exam date and time: 03/13/2022 9:34 PM Age: 31 years old Clinical indication: Abdominal pain; Other: Chronic ruq pain x 1 year; Additional info: Ruq abd pain TECHNIQUE: Imaging protocol: Real time ultrasound of the abdomen with image documentation. Limited exam focused on the right upper quadrant. COMPARISON: ES surgery / GI images 02/15/2021 7:20 AM FINDINGS: Liver: Normal. No masses. Gallbladder: There are several mobile bowel stones in the gallbladder. Positive sonographic Sierra sign. The gallbladder is moderately distended . The gallbladder wall is thickened up to 6 mm. Gallstones measure up to 17 mm. Biliary ducts: The common bile duct measures 4 mm which is normal. Pancreas: Visualized pancreas is unremarkable. Right kidney: Normal. No mass. No hydronephrosis. US/US gall bladder [id number] IMPRESSION: Cholelithiasis with gallbladder wall thickening but with sonographic Sierra sign. Distended common duct but without visible ductal stone. If symptomatic consider MRCP.
[2022-03-13 20:17] LABS: Add Urine Microscopic? NO; Charge for UA Resulting for Rev
[2022-03-13 20:18] LABS: HCG Qualitative Urine. Negative (Negative)
[2022-03-13 20:19] LABS: Bilirubin Urine Neg (Negative); Blood Urine Neg (Negative); Glucose Urine UA Norm (Normal); Ketones Urine Negative (Negative); Leukocyte Esterase Urine Negative (Negative); Nitrate Urine Negative (Negative); Protein Urine Neg (Negative); Urine Appearance Clear (CLEAR); Urine Color Yellow (Yellow); Urobilinogen Urine Norm (Negative); pH Urine 7 (5-7)
[2022-03-13 21:15] VITALS: BP 119/83; PULSE 84; TEMP 36.7; O2SAT 99
[2022-03-13 21:30] VITALS: BP 119/83; PULSE 84; RESP 16; TEMP 36.7; O2SAT 99
--- NOTE | 2022-03-14 09:48 | DCPLANNER ---
Addendum entered by Gabby Castillo 03/16/22 11:23: corporate logistics manager received the following message from the front office staff at general surgery regarding follow up appointment: unable to lvm 03/16 mailing patient a letter to gain contact On 03/15/22 @ 14:27 Jonna Newsome Wrote To Receiver Front Off unable to lvm 03/15 On 03/14/22 @ 10:35 Paulo Kumar Wrote To Receiver Front Off called to leave vm for patient but phone just rang and rang.. 03/14 Next available is 03/28 at 320 corporate logistics manager called phone number [phone] recording stated that phone number is not accepting calls at this time. corporate logistics manager called phone number [phone] recording stated that the wireless customer is not available at this time. Original Note: corporate logistics manager had message to schedule a follow up appointment for patient with general surgery. corporate logistics manager sent patients information to the front office staff at general surgery. Patients information will be printed and reviewed. Clinic will call patient with appointment information.
== END 2022-03-13 22:34 | disposition home or self-care (01) ==
PROVIDERS: Emergency Medicine; Emergency Provider Nurse Practitioner Family; PCP Nurse Practitioner Family
DX: K80.20 Calculus of gallbladder without cholecystitis without obstruction (principal)
CPT/HCPCS: 36415; 76705; 80053; 81003; 81025; 83690; 85025; 99284

== ENCOUNTER 2022-03-16 14:05 | Observation (INO) | payer OTHER, BC, MEDICAID, SELFPAY ==
[2022-03-16 14:59] VITALS: PULSE 88; RESP 16; TEMP 36.8; O2SAT 98; BMI 36.0
[2022-03-16 15:13] LABS: Basophils % 0.3 %; Eosinophils # 0.1 10^3/uL (0.0-0.8); Eosinophils % 1.2 %; Hematocrit 41.1 % (37.0-47.0); Lymphocytes # 2.5 10^3/uL (0.8-4.8); Lymphocytes % 22.5 %; Mean Corpuscular HGB Conc 31.6 g/dL (30.0-36.0); Mean Corpuscular Hemoglobin 26.1 pg (28.0-34.0); Mean Corpuscular Volume 82.4 fl (81-99); Monocytes # 0.5 10^3/uL (0.2-0.9); Monocytes % 4.1 %; Neutrophils # 7.84 10^3/uL (1.8-7.7); Neutrophils % 70.6 %; Nucleated Red Blood Cells % 0 %; Platelet Count 395 10^3/cmm (130-400); Red Blood Count 4.99 10^6/uL (4.1-5.3); Red Cell Distribution Width 13.9 % (12.1-15.1); White Blood Count 11.1 10^3/uL (4.0-10.0)
[2022-03-16 15:29] LABS: HCG, Serum Qual Negative (Negative)
[2022-03-16 15:41] LABS: Alanine Aminotransferase 29 U/L (0-33); Albumin Level 4.3 g/dL (3.5-5.2); Alkaline Phosphatase 109 U/L (35-105); Anion Gap 16.1 (5-19); Aspartate Amino Transferase 14 U/L (0-32); Blood Urea Nitrogen 5 mg/dL (6-20); Calcium 9.6 mg/dL (8.5-10.5); Carbon Dioxide 25 mmol/L (22-29); Chloride 101 mmol/L (98-107); Globulin 3.7 g/dL (1.3-4.6); Glomerular Filtration Rate 117.4 mL/min (90-130); Glucose 93 mg/dL (65-115); Lipase 37 U/L (13-60); Osmolality Calculated 283 mOsm/kg (285-295); Potassium 4.1 mmol/L (3.5-5.1); Sodium 138 mmol/L (136-145); Total Bilirubin 0.3 mg/dL (0.15-1.2)
[2022-03-16 16:27] VITALS: BP 139/94; PULSE 81; RESP 16; O2SAT 99
[2022-03-16 19:04] VITALS: BP 181/113; PULSE 94; O2SAT 99
--- NOTE | 2022-03-16 19:05 | USR_ITS ---
PROCEDURE INFORMATION: Exam: US Abdomen, Limited; Right Upper Quadrant Exam date and time: 03/16/2022 7:13 PM Age: 31 years old Clinical indication: Abdominal pain; Patient HX: Intermittent epigastric pain ruq pain x 1 yr, now severe. ; Additional info: Abd pain TECHNIQUE: Imaging protocol: Real time ultrasound of the abdomen with image documentation. Limited exam focused on the right upper quadrant. COMPARISON: US gall bladder [id number] 03/13/2022 9:34 PM FINDINGS: Liver: Normal. No masses. Gallbladder: Cholelithiasis with a positive Sierra's sign and borderline gallbladder wall thickening to 3.6 mm, concerning for an evolving cholecystitis, please correlate clinically. Biliary ducts: Normal. No stones. No dilation. Pancreas: Visualized pancreas is unremarkable. Right kidney: Normal. No mass. No hydronephrosis. US/US gall bladder [id number] IMPRESSION: Cholelithiasis with a positive Sierra's sign and borderline gallbladder wall thickening to 3.6 mm, concerning for an evolving cholecystitis, please correlate clinically.
--- NOTE | 2022-03-16 19:17 | ED_ITS ---
HPI - Abdominal Pain General: Chief Complaint: Abdominal Pain Stated Complaint: abd pain Time Seen by Provider: 03/16/22 19:03 Source: patient Mode of arrival: ambulatory Limitations: no limitations History of Present Illness: 31-year-old female states that she was seen here 2 days ago was diagnosed with cholelithiasis she states she is been having severe right upper quadrant pain since then. States the pain is been sharp in nature rates it a 8 out of 10 she is also had nausea and vomiting she denies any fevers she denies any worsening proving factors. Associated Symptoms: Denies chills, dysuria and fever(s) Review of Systems Const: Denies: fever(s), chills, body aches or change in appetite Eyes: Denies: blurry vision or eye discomfort ENMT: Denies: throat pain or dental pain Card: Denies: chest pain Resp: Denies: dyspnea GI: Reports: abdominal pain : Denies: dysuria Musc: Denies: neck pain or back pain Skin/Breast: Denies: rash Neuro: Denies: headache(s) Psych: Denies: depression Matthew/Lymph: Denies: easy bruising All/Imm: Denies: urticaria PFSH ED PFSH: Medical History Celiac disease No pertinent past medical history neghx:htn,dm,thyroid,dvt/pe,herpes. 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 H/O section (~2018) Family History Father Heart disease Mother Skin cancer Diabetes Hyperlipidemia Grandmother Breast cancer Paternal grandmother Denies family history of Colon cancer Ovarian cancer Family history of thyroid problem Hypertension Uterine cancer Stroke Social History Smoking and tobacco status: never smoked Alcohol intake: never Physical Exam Const: COMMON NORMALS: no acute distress, patient oriented x3 and healthy appearing HENMT: COMMON NORMALS: normocephalic and atraumatic HEAD & SCALP: normocephalic and atraumatic Eye: COMMON NORMALS: Equal, round and reactive pupils present and EOMs intact bilaterally PUPIL: Yes Equal, round and reactive pupils present Neck/C-Spine: COMMON NORMALS: full ROM and supple Chest: COMMONS NORMALS: normal inspection of the chest and normal palpation of entire chest wall Resp: COMMON NORMALS: normal respiratory effort, No retractions, No use of accessory muscles and clear to auscultation bilaterally AUSCULTATION: clear to auscultation bilaterally Cardio: COMMON NORMALS: regular rate, regular rhythm and No murmurs present (Cardio) RATE: regular rate RHYTHM: regular rhythm GI: COMMON NORMALS: Normal to inspection, nondistended, normoactive bowel sounds present, Soft to palpation and no masses PALPATION: Yes Soft to palpation and Yes Tenderness to palpation present (GI) Details: RUQ Extremity: COMMON NORMALS: normal to inspection and full ROM Neuro: COMMON NORMALS: patient oriented x3, moves all extremities and no focal motor deficits Psych: COMMON NORMALS: mental status grossly normal, Normal thought process pr esent and cooperative THOUGHT PROCESS: Normal thought process present Skin: COMMON NORMALS: no rashes or lesions noted and no wounds GENERAL SKIN EXAM: no rashes or lesions noted Course Vital Signs: Vital signs: Vital Signs Temperature 98.2 F 03/16/22 14:59 Pulse Rate 94 03/16/22 19:04 Respiratory Rate 16 03/16/22 16:27 Blood Pressure 181/113 03/16/22 19:04 Pulse Oximetry 99 03/16/22 19:04 Oxygen Delivery Me thod 03/16/22 19:04 MDM - Abdominal Pain Medical Decision Making Patient presents here with cholecystitis been having increasing pain vomiting here did speak to surgeon will admit at this time Lab Data 03/16/22 14:40 03/16/22 14:40 Labs/Radiology: Radiology Impressions Gallbladder Ultrasound 03/16/22 19:05 IMPRESSION: Cholelithiasis with a positive Sierra's sign and borderline gallbladder wall thickening to 3.6 mm, concerning for an evolving cholecystitis, please correlate clinically. Laboratory Results WBC 11.1 10^3/uL (4.0-10.0) H 03/16/22 14:40 RBC 4.99 10^6/uL (4.1-5.3) 03/16/22 14:40 Hgb 13.0 g/dL (11.5-15.3) 03/16/22 14:40 Hct 41.1 % (37.0-47.0) 03/16/22 14:40 MCV 82.4 fl (81-99) 03/16/22 14:40 MCH 26.1 pg (28.0-34.0) L 03/16/22 14:40 MCHC 31.6 g/dL (30.0-36.0) 03/16/22 14:40 RDW 13.9 % (12.1-15.1) 03/16/22 14:40 Plt Count 395 10^3/cmm (130-400) 03/16/22 14:40 MPV 9.0 fL (7.4-10.4) 03/16/22 14:40 Neut % (Auto) 70.6 % 03/16/22 14:40 Lymph % (Auto) 22.5 % 03/16/22 14:40 [place] % (Auto) 4.1 % 03/16/22 14:40 Eos % (Auto) 1.2 % 03/16/22 14:40 Baso % (Auto) 0.3 % 03/16/22 14:40 Neut # (Auto) 7.84 10^3/uL (1.8-7.7) H 03/16/22 14:40 Lymph # (Auto) 2.5 10^3/uL (0.8-4.8) 03/16/22 14:40 [place] # (Auto) 0.5 10^3/uL (0.2-0.9) 03/16/22 14:40 Eos # (Auto) 0.1 10^3/uL (0.0-0.8) 03/16/22 14:40 Baso # (Auto) 0.0 10^3/uL (0.0-0.1) 03/16/22 14:40 Nucleated RBC % (auto) 0 % 03/16/22 14:40 Nucleated RBCs # 0.0 /100WBC 03/16/22 14:40 Sodium 138 mmol/L (136-145) 03/16/22 14:40 Potassium 4.1 mmol/L (3.5-5.1) 03/16/22 14:40 Chloride 101 mmol/L (98-107) 03/16/22 14:40 Carbon Dioxide 25 mmol/L (22-29) 03/16/22 14:40 Anion Gap 16.1 (5-19) 03/16/22 14:40 BUN 5 mg/dL (6-20) L 03/16/22 14:40 Creatinine 0.6 mg/dL (0.5-0.9) 03/16/22 14:40 GFR Calculation 117.4 mL/min (90-130) 03/16/22 14:40 Glucose 93 mg/dL (65-115) 03/16/22 14:40 Calculated Osmolality 283 mOsm/kg (285-295) L 03/16/22 14:40 Calcium 9.6 mg/dL (8.5-10.5) 03/16/22 14:40 Total Bilirubin 0.3 mg/dL (0.15-1.2) 03/16/22 14:40 AST 14 U/L (0-32) 03/16/22 14:40 ALT 29 U/L (0-33) 03/16/22 14:40 Alkaline Phosphatase 109 U/L (35-105) H 03/16/22 14:40 Total Protein 8.0 g/dL (6.6-8.7) 03/16/22 14:40 Albumin 4.3 g/dL (3.5-5.2) 03/16/22 14:40 Globulin 3.7 g/dL (1.3-4.6) 03/16/22 14:40 Lipase 37 U/L (13-60) 03/16/22 14:40 HCG, Qual Negative (Negative) 03/16/22 14:40 Urine Color Yellow (Yellow) 03/16/22 17:38 Urine Appearance Clear (CLEAR) 03/16/22 17:38 Urine pH 9 (5-7) H 03/16/22 17:38 Ur Specific [place] 1.015 (1.005-1.030) 03/16/22 17:38 Urine Protein Neg (Negative) 03/16/22 17:38 Urine Glucose (UA) Norm (Normal) 03/16/22 17:38 Urine Ketones 1+ (Negative) H 03/16/22 17:38 Urine Blood Neg (Negative) 03/16/22 17:38 Urine Nitrate Negative (Negative) 03/16/22 17:38 Urine Bilirubin Neg (Negative) 03/16/22 17:38 Prot Sulfosalicylic Acd Negative (Negative) 03/16/22 17:38 Urine Urobilinogen Neg mg/dL (Negative) 03/16/22 17:38 Ur Leukocyte Esterase Negative (Negative) 03/16/22 17:38 Discharge Plan Discharge Patient Disposition: Admitted As Inpatient Clinical Impression: Cholecystitis Condition: Stable Coding Level of Care Code ED Contract Administrative Assistant for Chg Fwd Exam Comprehensive
[2022-03-16 19:55] LABS: Add Urine Microscopic? NO; Charge for UA Resulting for Rev
[2022-03-16 20:09] LABS: Bilirubin Urine Neg (Negative); Blood Urine Neg (Negative); Glucose Urine UA Norm (Normal); Ketones Urine 1+ (Negative); Leukocyte Esterase Urine Negative (Negative); Nitrate Urine Negative (Negative); Protein Urine Neg (Negative); Specific Gravity, Urine 1.015 (1.005-1.030); Sulfosalicylic Acid Urine Negative (Negative); Urine Appearance Clear (CLEAR); Urine Color Yellow (Yellow); Urobilinogen Urine Neg (Negative); pH Urine 9 (5-7)
[2022-03-16] MEDS: morphine 4 mg/mL SDV 1 mL IVP (20:12)
[2022-03-16] MEDS: ondansetron 2 mg/ML SDV 2 mL 4 MG IVP (20:12)
[2022-03-16] MEDS: sodium chloride 0.9% 1,000 ML 999 ML IV (20:16)
[2022-03-16] MEDS: sodium chloride 0.9% 1,000 ML 100 ML IV (22:13)
[2022-03-16 22:31] VITALS: BP 135/85; PULSE 91; RESP 20; TEMP 37; O2SAT 98
[2022-03-17] VITALS (24 sets, daily range): BP systolic 100–151; BP diastolic 65–101; PULSE 79–106; RESP 11–19; TEMP 36.1–37.2; O2SAT 90–100
[2022-03-17] MEDS: morphine 4 mg/mL SDV 1 mL IVP (00:36)
[2022-03-17] MEDS: piperacillin-tazobactam 3.375 GM in sodium chloride 0.9% (plus) 50 ML IV (03:40)
--- NOTE | 2022-03-17 08:27 | P.HP_ITS ---
Providers/Chief Complaint Admitting Physician: Rozina Barker MD Primary Care Provider: ABI Collazo Chief Complaint: abd pain History of Present Illness Emmy King is a 31 year old female with a history of right upper quadrant and epigastric pain intermittently for a little over a year. This has been increasing in both frequency and severity. She has not noticed any speci fic pattern. Episodes typically last an hour or 2. However she has been in nearly constant pain for the past 2 days. She has previously had occasional associated nausea, but now has developed vomiting over the past 2 days. She was diagnosed with uncomplicated gallstones 4 days ago. Repeat imaging yesterday shows borderline gallbladder wall thickening. Review of Systems Const: Denies: fever(s) or chills Card: Denies: chest pain Resp: Denies: dyspnea GI: Reports: abdominal pain, nausea and vomiting; Denies: change in bowel habits, hematochezia or melena Matthew/Lymph: Denies: easy bleeding Medications/Allergies Home Medications Medication Instructions Recorded Confirmed Last Taken Type paroxetine HCl 20 mg tablet 20 mg PO DAILY 02/11/21 02/21/21 02/14/21 History guaifenesin 600 mg tablet, 600 mg PO Q12H PRN Cough 03/17/22 03/17/22 Unknown History extended release 12 hr (Mucinex) ibuprofen 200 mg capsule 400 mg PO Q6H PRN Pain 03/17/22 03/17/22 Unknown History Allergies Allergy/AdvReac Type Severity Reaction Status Date / Time No Known Allergies Allergy Verified 03/17/22 08:38 PFSH Acute PFSH: Medical History Celiac disease No pertinent past medical history neghx:htn,dm,thyroid,dvt/pe,herpes. 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 ALEX Surgical History H/O section (~2018) Family History Father Heart disease Mother Skin cancer Diabetes Hyperlipidemia Grandmother Breast cancer Paternal grandmother Denies family history of Colon cancer Ovarian cancer Family history of thyroid problem Hypertension Uterine cancer Stroke Social History Smoking and tobacco status: never smoked Alcohol intake: never Vitals/I&O/Wt Last Vital Signs Temp 98.9 F 03/17/22 07:57 Pulse 97 03/17/22 07:57 Resp 18 03/17/22 07:57 BP 123/80 03/17/22 07:57 Pulse Ox 96 03/17/22 07:57 O2 Del Method 03/17/22 07:57 03/16/22 03/17/22 03/17/22 22:59 06:59 14:59 Intake Total 0 / 0 Output Total 600 / 600 Balance -600 / -600 Weight last 48 hrs Weight 230 lb Physical Exam Const: COMMON NORMALS: no acute distress and alert NUTRITIONAL APPEARANCE: obese HENMT: COMMON NORMALS: normocephalic and atraumatic Eye: COMMON NORMALS: no scleral icterus Resp: COMMON NORMALS: normal respiratory effort and clear to auscultation bilaterally Cardio: COMMON NORMALS: regular rate, regular rhythm, S1 normal heart sound present and S2 normal heart sound present GI: INSPECTION: No abdominal distension AUSCULTATION: Yes Hypoactive bowel sounds present PALPATION: Yes Tenderness to palpation present (GI) (Markedly tender in RUQ) Details: RUQ and No Rebound tenderness present Extremity: COMMON NORMALS: no clubbing, cyanosis or edema Neuro: COMMON NORMALS: moves all extremities, no focal motor deficits and no sensory deficits noted Psych: COMMON NORMALS: mental status grossly normal and normal affect Skin: COMMON NORMALS: no jaundice Data 03/16/22 14:40 03/16/22 14:40 Other Labs: Laboratory Last Values WBC 11.1 10^3/uL (4.0-10.0) H 03/16/22 14:40 RBC 4.99 10^6/uL (4.1-5.3) 03/16/22 14:40 Hgb 13.0 g/dL (11.5-15.3) 03/16/22 14:40 Hct 41.1 % (37.0-47.0) 03/16/22 14:40 MCV 82.4 fl (81-99) 03/16/22 14:40 MCH 26.1 pg (28.0-34.0) L 03/16/22 14:40 MCHC 31.6 g/dL (30.0-36.0) 03/16/22 14:40 RDW 13.9 % (12.1-15.1) 03/16/22 14:40 Plt Count 395 10^3/cmm (130-400) 03/16/22 14:40 MPV 9.0 fL (7.4-10.4) 03/16/22 14:40 Neut % (Auto) 70.6 % 03/16/22 14:40 Lymph % (Auto) 22.5 % 03/16/22 14:40 [place] % (Auto) 4.1 % 03/16/22 14:40 Eos % (Auto) 1.2 % 03/16/22 14:40 Baso % (Auto) 0.3 % 03/16/22 14:40 Neut # (Auto) 7.84 10^3/uL (1.8-7.7) H 03/16/22 14:40 Lymph # (Auto) 2.5 10^3/uL (0.8-4.8) 03/16/22 14:40 [place] # (Auto) 0.5 10^3/uL (0.2-0.9) 03/16/22 14:40 Eos # (Auto) 0.1 10^3/uL (0.0-0.8) 03/16/22 14:40 Baso # (Auto) 0.0 10^3/uL (0.0-0.1) 03/16/22 14:40 Nucleated RBC % (auto) 0 % 03/16/22 14:40 Nucleated RBCs # 0.0 /100WBC 03/16/22 14:40 Sodium 138 mmol/L (136-145) 03/16/22 14:40 Potassium 4.1 mmol/L (3.5-5.1) 03/16/22 14:40 Chloride 101 mmol/L (98-107) 03/16/22 14:40 Carbon Dioxide 25 mmol/L (22-29) 03/16/22 14:40 Anion Gap 16.1 (5-19) 03/16/22 14:40 BUN 5 mg/dL (6-20) L 03/16/22 14:40 Creatinine 0.6 mg/dL (0.5-0.9) 03/16/22 14:40 GFR Calculation 117.4 mL/min (90-130) 03/16/22 14:40 Glucose 93 mg/dL (65-115) 03/16/22 14:40 Calculated Osmolality 283 mOsm/kg (285-295) L 03/16/22 14:40 Calcium 9.6 mg/dL (8.5-10.5) 03/16/22 14:40 Total Bilirubin 0.3 mg/dL (0.15-1.2) 03/16/22 14:40 AST 14 U/L (0-32) 03/16/22 14:40 ALT 29 U/L (0-33) 03/16/22 14:40 Alkaline Phosphatase 109 U/L (35-105) H 03/16/22 14:40 Total Protein 8.0 g/dL (6.6-8.7) 03/16/22 14:40 Albumin 4.3 g/dL (3.5-5.2) 03/16/22 14:40 Globulin 3.7 g/dL (1.3-4.6) 03/16/22 14:40 Lipase 37 U/L (13-60) 03/16/22 14:40 HCG, Qual Negative (Negative) 03/16/22 14:40 Urine Color Yellow (Yellow) 03/16/22 17:38 Urine Appearance Clear (CLEAR) 03/16/22 17:38 Urine pH 9 (5-7) H 03/16/22 17:38 Ur Specific [place] 1.015 (1.005-1.030) 03/16/22 17:38 Urine Protein Neg (Negative) 03/16/22 17:38 Urine Glucose (UA) Norm (Normal) 03/16/22 17:38 Urine Ketones 1+ (Negative) H 03/16/22 17:38 Urine Blood Neg (Negative) 03/16/22 17:38 Urine Nitrate Negative (Negative) 03/16/22 17:38 Urine Bilirubin Neg (Negative) 03/16/22 17:38 Prot Sulfosalicylic Acd Negative (Negative) 03/16/22 17:38 Urine Urobilinogen Neg mg/dL (Negative) 03/16/22 17:38 Ur Leukocyte Esterase Negative (Negative) 03/16/22 17:38 US: Radiologist's impression: Radiology Impressions Gallbladder Ultrasound 03/16/22 19:05 IMPRESSION: Cholelithiasis with a positive Sierra's sign and borderline gallbladder wall thickening to 3.6 mm, concerning for an evolving cholecystitis, please correlate clinically. A&P Assessment and plan (1) Calculus of gallbladder with acute cholecystitis without obstruction: Patient with history of biliary colic, presents with evolving acute cholecys titis. I recommended that she undergo urgent cholecystectomy. I discussed with her the risks of infection, bleeding, damage to adjacent structures including the common bile duct, bile leak, retained stones, and the possibility of additional procedures or surgeries. I also discussed with her the possibility of conversion from laparoscopic to open procedure. All questions were answered to her satisfaction. She would like to proceed with laparoscopic cholecystectomy, possible open cholecystectomy, possible intraoperative cholangiogram. Attestations Medical Necessity Statement*: Emmy King's hospital stay will be less than 2 midnights for cholecystitis. Coding Level of Care Code Acute Group Captain for [facility] Diagnoses Calculus of gallbladder with acute cholecystitis without obstruction K80.00
[2022-03-17] MEDS: sodium chloride 0.9% 1,000 ML 30 ML IV (08:45)
[2022-03-17] MEDS: ceFAZolin 2,000 MG in sodium chloride 0.9% (plus) 50 ML 100 MG IV (09:04)
--- NOTE | 2022-03-17 10:18 | PC.NURSE ---
Patient to surgery at 0852
--- NOTE | 2022-03-17 11:15 | PC.CHAP ---
Pastoral Care Encounter/Spiritual Assessment Type of Contact [] Declined radiological technician visit [] Patient/Family/Request visit [] Outpatient visit [] Follow-up visit [] Physician referral [] Code/Alert [x] Routine visit [] Staff referral [] Actively dying [] Patient sleeping [] Family support [] [x] Out of room [] Palliative care [] [] Receiving care in room [] Pre-surgical visit [] Trauma [] Long length of stay [] ICU visit [] Other: Relational/Emotional Strength [] Patient feels connected with others/family/visitors/staff [] Distress [] Loneliness/isolation [] Abandonment Spirituality of Patient [] Person of Keri [] Attends Mu-Ism of their Keri [] Believes in Prayer [] Reads Bible or Alevism materials [] There are Spiritual issues to be addressed 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 Interventions [] Prayer [] Active listening [] Non-anxious presence [] Spiritual/emotional support [] Crisis/trauma care [] Spiritual counseling [] Bereavement support [] Provided bereavement packet [] Provided Bible/devotional materials [] Provided toy/stuffed animal, coloring book to patient or family member [] Provided Communion [] Anointing/[place] [] Salvation [] Completed spiritual assessment [] Other: Impact on Illness or Injury [] Angry [] Fearful [] Anxious [] Often cries [] Exhaustion [] Unable to work [] Unable to attend confucianist [] Unable to walk/stand [] Unable to read [] Unable to drive [] Unable to eat/drink [] Unable to sleep [] Unable to be with family [] Patient intubated [] Other: Summary Time spent with patient
--- NOTE | 2022-03-17 11:39 | PM.OP ---
Operative Report Date of procedure: March 17, 2022 Pre-op diagnosis: Preop Diagnosis acute cholecystitis Post-op diagnosis: Same Procedure done: Laparoscopic cholecystectomy Specimens removed/disposition: Gallbladder to pathology Surgeon: Rozina Barker Anesthesia: General Estimated blood loss: 25 mL Complications: None Findings: Gallbladder was tensely distended with hydrops. There was gallbladder wall thickening but no omental adhesions. Brief History: Emmy King is a 31-year-old patient who presents with a history of worsening right upper quadrant pain and recent diagnosis of cholelithiasis. She presented with unrelenting pain, vomiting, and tenderness suggestive of evolving acute cholecystitis. She was therefore brought to the operating room for urgent cholecystectomy. Procedure: The patient was brought to the operating room and placed on the table in the supine position. A general anesthetic was given, and the patient was intubated. The abdomen was prepped with ChloraPrep and sterilely draped. Skin and subcutaneous tissue in the inferior umbilicus was infiltrated with 0.5% Marcaine. A #11 blade was used to open the previous incision. A straight laparoscope was used within an 11 mm insufflating trocar to obtain optical entry. Pneumoperitoneum was established and there was no evidence of visceral injury upon inspection. Laparoscope was changed to a 30 degree angled scope. An 11 mm bladeless subxiphoid trocar and two 5 mm bladeless right subcostal trocars were placed under laparoscopic visualization after injecting Marcaine at each site. The gallbladder was noted to be tensely distended. A locking grasper was placed on the fundus, which was retracted cephalad. As a second grasper was being positioned, the gallbladder tore at the fundus, yielding clear fluid consistent with hydrops. After suctioning out the fluid, the grasper was replaced to occlude the opening. The infundibulum was then retracted laterally with a second locking grasper. Peritoneum at the gallbladder neck was opened with electrocautery. The cystic duct was carefully dissected out with a [place] dissector, electrocautery, and laparoscopic [place]. Peritoneum was opened on both sides of the gallbladder with hook electrocautery. Once the cystic duct was skeletonized from the surrounding structures, dissection was continued to identify the cystic artery. The cystic artery was readily isolated from surrounding structures. A critical view was obtained of the duct and artery being the only 2 remaining structures to the gallbladder with completely clear space behind. Clips were placed on the cystic duct with some difficulty due to the caliber of the cystic duct. After two clips were placed, it was elected to divide the cystic duct leaving both clips on the cystic duct stump, as there was not enough room to place a clip on the specimen side. The duct was partially divided with scissors. Some stones were seen in the gallbladder neck, and a clip was placed to partially occlude the gallbladder neck to prevent stone spillage. Once the cystic duct was completely divided, an 0 PDS Endoloop was placed below the clips on the cystic duct stump to ensure that it was secure. The artery was then clipped and divided with scissors leaving 2 clips on the arterial stump. The gallbladder was divided from its fossa using hook electrocautery. It was placed in an specimen pouch and brought out through the umbilical trocar site. An 0 Vicryl suture was passed using the Rudy Manning prior to replacing the umbilical trocar. The subhepatic space was aspirated and irrigated with saline until the effluent was clear. Clips were examined and appeared secure and hemostatic. There were no bleeding points in the gallbladder fossa. Trocars were removed under laparoscopic visualization. Pneumoperitoneum was released. Fascial suture at the umbilicus was tied down, and subcutaneous tissue was copiously irrigated with saline. Skin was closed at all the incisions with subcuticular 4-0 Monocryl. The wounds were cleaned and closures were reinforced with Dermabond. The patient was awakened, extubated, and transferred to recovery in satisfactory condition. At the end of the case, sharps and sponge counts were reported to be correct.
--- NOTE | 2022-03-17 12:38 | PC.NURSE ---
PT DENIES PAIN, NAUSEA. PERFUSING APPROPRIATELY, SEE VITALS. PT TAKEN TO FLOOR ON O2 2% PER NC, NO DRAINAGE FROM FOUR INCISIONS TO BELLY. PT'S NURSE MALIHA, AT BEDSIDE UPON ARRIVAL.
--- NOTE | 2022-03-17 12:46 | ANES.PREANE2 ---
Pre-Anesthetic Assessment Height/Weight: Height 1.7 m Weight 104.326 kg Temp Pulse Resp BP Pulse Ox O2 Del Method O2 Flow Rate 99.0 F 85 18 119/78 97 2 03/17/22 12:35 03/17/22 12:35 03/17/22 12:35 03/17/22 12:35 03/17/22 12:35 03/17/22 12:35 03/17/22 12:15 Preop Diagnosis: desires permananent sterilization Operation Date: 03/17/22 09:00 Proposed Procedures p Laparoscopic Cholecystectomy(Not Applicable) - Rozina Barker MD Familial anesthetic complications: none Was Beta David taken within 24 hours: N/A Was Clonidine taken within 24 hours: N/A Last intake: Intake Last Liquid Date 03/16/22 Last Liquid Time 14:20 Last Solid Date 03/15/22 Last Solid Time 20:00 Social No alcohol and No tobacco Exam alert, oriented x 3, clear to auscultation bilaterally and regular rate & rhythm Airway Submandibular: within normal limits Cervical ROM: within normal limits Mallampati: Class II Dentition: false Metabolic Morbid Obesity Anesthetic Plan ASA status: 2 Anesthesia: General Medications/Allergies Home Medications Medication Instructions Recorded Confirmed Last Taken Type paroxetine HCl 20 mg tablet 20 mg PO DAILY 02/11/21 03/17/22 02/14/21 History guaifenesin 600 mg tablet, 600 mg PO Q12H PRN Cough 03/17/22 03/17/22 Unknown History extended release 12 hr (Mucinex) ibuprofen 200 mg capsule 400 mg PO Q6H PRN Pain 03/17/22 03/17/22 Unknown History Allergies Allergy/AdvReac Type Severity Reaction Status Date / Time No Known Allergies Allergy Verified 03/17/22 08:38 Current Medications Generic Name Dose Route Start Last Admin Trade Name Freq PRN Reason Stop Dose Admin Sodium Chloride 1,000 mls @ 100 mls/hr 03/17/22 11:30 03/17/22 12:43 Sodium Chloride 0.9% IV 03/18/22 11:29 Not Given .Q10H RONALD Morphine Sulfate 4 mg 03/16/22 21:49 03/17/22 00:36 Morphine 4 Mg/Ml Sdv 1 Ml IVP 4 mg Q4H PRN Administration SEVERE PAIN PFSH Anesthesia Medical History Celiac disease No pertinent past medical history neghx:htn,dm,thyroid,dvt/pe,herpes. 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 Brunner [facility] Surgical History H/O section (~2018) Family History Father Heart disease Mother Skin cancer Diabetes Hyperlipidemia Grandmother Breast cancer Paternal grandmother Denies family history of Colon cancer Ovarian cancer Family history of thyroid problem Hypertension Uterine cancer Stroke Social History Smoking and tobacco status: never smoked Alcohol intake: never Data Anesthesia 03/16/22 14:40 03/16/22 14:40 Short CBC 03/16/22 Range/Units 14:40 WBC 11.1 H (4.0-10.0) 10^3/uL Hgb 13.0 (11.5-15.3) g/dL Hct 41.1 (37.0-47.0) % MCV 82.4 (81-99) fl Plt Count 395 (130-400) 10^3/cmm Neut % (Auto) 70.6 % Neut # (Auto) 7.84 H (1.8-7.7) 10^3/uL BMP 03/16/22 14:40 Sodium 138 Potassium 4.1 Chloride 101 Carbon Dioxide 25 BUN 5 L Creatinine 0.6 Glucose 93 Calcium 9.6 Liver Function 03/16/22 Range/Units 14:40 Total Bilirubin 0.3 (0.15-1.2) mg/dL AST 14 (0-32) U/L ALT 29 (0-33) U/L Alkaline Phosphatase 109 H (35-105) U/L Albumin 4.3 (3.5-5.2) g/dL Urine 03/16/22 Range/Units 17:38 Urine Color Yellow (Yellow) Urine Appearance Clear (CLEAR) Urine pH 9 H (5-7) Ur Specific [place] 1.015 (1.005-1.030) Urine Protein Neg (Negative) Urine Glucose (UA) Norm (Normal) Urine Ketones 1+ H (Negative) Urine Nitrate Negative (Negative) Urine Bilirubin Neg (Negative) Ur Leukocyte Esterase Negative (Negative) Cardiac Studies: No Data to Display
--- NOTE | 2022-03-17 12:47 | ANE.PACU2 ---
Inpatient post-anesthesia follow up: Airway intact: Yes Vital signs: Temperature 99.0 F Pulse Rate 85 Respiratory Rate 18 Blood Pressure 119/78 Pulse Oximetry 97 Oxygen Delivery Me thod Nasal Cannula Oxygen Flow Rate 2 Fraction of Inspir ed Oxygen Hydration adequate: Yes Nausea and vomiting: No Pain level: 3 Mental status: Baseline
[2022-03-17] MEDS: PARoxetine 20 mg Tablet PO (13:01)
[2022-03-17] MEDS: oxyCODONE-APAP 10-325 mg Tablet 1 TAB PO (17:54)
[2022-03-17] MEDS: sodium chloride 0.9% 1,000 ML 100 ML IV (17:56)
[2022-03-18] VITALS: BP 119/88; PULSE 84; RESP 17; TEMP 37; O2SAT 95
[2022-03-18 02:35] VITALS: RESP 18
[2022-03-18] MEDS: oxyCODONE-APAP 10-325 mg Tablet 1 TAB PO (02:35)
[2022-03-18 04:58] VITALS: BP 107/70; PULSE 89; RESP 17; TEMP 37; O2SAT 97
[2022-03-18 07:56] VITALS: BP 108/67; PULSE 84; RESP 18; TEMP 36.9; O2SAT 96
[2022-03-18] MEDS: PARoxetine 20 mg Tablet PO (08:11)
--- NOTE | 2022-03-18 10:44 | P.DS_ITS ---
Discharge Providers Date of Admission: 03/16/22 20:25 Date of Discharge: March 18, 2022 Attending Provider at Admission: Rozina Barker MD Attending Provider at Discharge: Rozina Barker MD Primary Care Provider: ABI Collazo Diagnoses at Discharge Discharge Diagnosis (1) Calculus of gallbladder with acute cholecystitis without obstruction: Status: Acute Reason for Visit Reason for Visit: abd pain Brief History: Emmy King is a 31-year-old patient who presented with signs and sympto ms of acute cholecystitis. Hospital Course Hospital Course Patient was brought to the operating room for urgent cholecystectomy. Operative findings were consistent with acute cholecystitis. She did well postoperatively and diet was advanced without difficulty. She had satisfactory pain control on oral medication by postoperative day 1, was ambulating without difficulty, and was discharged in stable condition. Physical Exam Const: COMMON NORMALS: no acute distress and alert Eye: COMMON NORMALS: no scleral icterus Cardio: COMMON NORMALS: regular rate and regular rhythm RATE: regular rate RHYTHM: regular rhythm GI: COMMON NORMALS: Soft to palpation INSPECTION: No abdominal distension and Yes incision (Clean, dry, intact) AUSCULTATION: Yes normoactive bowel sounds PALPATION: Yes Soft to palpation and Yes Tenderness to palpation present (GI) (Appropriate incisional tenderness) Neuro: SENSORIUM/ORIENTATION: Yes alert Skin: COMMON NORMALS: no jaundice Discharge Data Studies Completed and Pending Completed Studies During Hospitalization Category Date Time Status US gall bladder 99649 Stat Ultrasound 03/16/22 19:05 Completed Pending at discharge Category Date Time Status Pathology: Surgical [PTH] Routine Pth 03/17/22 11:29 Received Radiology Impressions Gallbladder Ultrasound 03/16/22 19:05 IMPRESSION: Cholelithiasis with a positive Sierra's sign and borderline gallbladder wall thickening to 3.6 mm, concerning for an evolving cholecystitis, please correlate clinically. Laboratory Results WBC 11.1 10^3/uL (4.0-10.0) H 03/16/22 14:40 RBC 4.99 10^6/uL (4.1-5.3) 03/16/22 14:40 Hgb 13.0 g/dL (11.5-15.3) 03/16/22 14:40 Hct 41.1 % (37.0-47.0) 03/16/22 14:40 MCV 82.4 fl (81-99) 03/16/22 14:40 MCH 26.1 pg (28.0-34.0) L 03/16/22 14:40 MCHC 31.6 g/dL (30.0-36.0) 03/16/22 14:40 RDW 13.9 % (12.1-15.1) 03/16/22 14:40 Plt Count 395 10^3/cmm (130-400) 03/16/22 14:40 MPV 9.0 fL (7.4-10.4) 03/16/22 14:40 Neut % (Auto) 70.6 % 03/16/22 14:40 Lymph % (Auto) 22.5 % 03/16/22 14:40 [place] % (Auto) 4.1 % 03/16/22 14:40 Eos % (Auto) 1.2 % 03/16/22 14:40 Baso % (Auto) 0.3 % 03/16/22 14:40 Neut # (Auto) 7.84 10^3/uL (1.8-7.7) H 03/16/22 14:40 Lymph # (Auto) 2.5 10^3/uL (0.8-4.8) 03/16/22 14:40 [place] # (Auto) 0.5 10^3/uL (0.2-0.9) 03/16/22 14:40 Eos # (Auto) 0.1 10^3/uL (0.0-0.8) 03/16/22 14:40 Baso # (Auto) 0.0 10^3/uL (0.0-0.1) 03/16/22 14:40 Nucleated RBC % (auto) 0 % 03/16/22 14:40 Nucleated RBCs # 0.0 /100WBC 03/16/22 14:40 Sodium 138 mmol/L (136-145) 03/16/22 14:40 Potassium 4.1 mmol/L (3.5-5.1) 03/16/22 14:40 Chloride 101 mmol/L (98-107) 03/16/22 14:40 Carbon Dioxide 25 mmol/L (22-29) 03/16/22 14:40 Anion Gap 16.1 (5-19) 03/16/22 14:40 BUN 5 mg/dL (6-20) L 03/16/22 14:40 Creatinine 0.6 mg/dL (0.5-0.9) 03/16/22 14:40 GFR Calculation 117.4 mL/min (90-130) 03/16/22 14:40 Glucose 93 mg/dL (65-115) 03/16/22 14:40 Calculated Osmolality 283 mOsm/kg (285-295) L 03/16/22 14:40 Calcium 9.6 mg/dL (8.5-10.5) 03/16/22 14:40 Total Bilirubin 0.3 mg/dL (0.15-1.2) 03/16/22 14:40 AST 14 U/L (0-32) 03/16/22 14:40 ALT 29 U/L (0-33) 03/16/22 14:40 Alkaline Phosphatase 109 U/L (35-105) H 03/16/22 14:40 Total Protein 8.0 g/dL (6.6-8.7) 03/16/22 14:40 Albumin 4.3 g/dL (3.5-5.2) 03/16/22 14:40 Globulin 3.7 g/dL (1.3-4.6) 03/16/22 14:40 Lipase 37 U/L (13-60) 03/16/22 14:40 HCG, Qual Negative (Negative) 03/16/22 14:40 Urine Color Yellow (Yellow) 03/16/22 17:38 Urine Appearance Clear (CLEAR) 03/16/22 17:38 Urine pH 9 (5-7) H 03/16/22 17:38 Ur Specific [place] 1.015 (1.005-1.030) 03/16/22 17:38 Urine Protein Neg (Negative) 03/16/22 17:38 Urine Glucose (UA) Norm (Normal) 03/16/22 17:38 Urine Ketones 1+ (Negative) H 03/16/22 17:38 Urine Blood Neg (Negative) 03/16/22 17:38 Urine Nitrate Negative (Negative) 03/16/22 17:38 Urine Bilirubin Neg (Negative) 03/16/22 17:38 Prot Sulfosalicylic Acd Negative (Negative) 03/16/22 17:38 Urine Urobilinogen Neg mg/dL (Negative) 03/16/22 17:38 Ur Leukocyte Esterase Negative (Negative) 03/16/22 17:38 Procedures Performed Procedures Operation Date: 03/17/22 09:00 Actual Procedure Side Surgeon Laparoscopic Cholecystectomy Not Applicable Rozina Barker MD Vitals Last Vital Signs Temp 98.5 F 03/18/22 07:56 Pulse 84 03/18/22 07:56 Resp 18 03/18/22 07:56 BP 108/67 03/18/22 07:56 Pulse Ox 96 03/18/22 07:56 O2 Del Method 03/18/22 07:56 O2 Flow Rate 2 03/18/22 08:00 Discharge Plan Discharge Patient Disposition: Home Condition: Stable Prescriptions: New oxycodone-acetaminophen 5-325 mg Tablet 1 tab PO Q6H PRN (Reason: Moderate Pain) Qty: 15 0RF Continued paroxetine HCl 20 mg tablet 20 mg PO DAILY ibuprofen 200 mg Capsule 400 mg PO Q6H PRN (Reason: Pain) Mucinex 600 mg Tablet Extended Release 12hr 600 mg PO Q12H PRN (Reason: Cough) Discharge Orders: Discharge Order (Routine); Ordered 03/18/22 Ordered By: Rozina Barker Referrals: Daniel Rojas DO [Physician] - Brunner,ABI Lr [Primary Care Provider] - Discharge Diet: Advance as tolerated Discharge Activity: Limit activity as instructed Patient Instructions: Oxycodone/Acetaminophen (By mouth), Laparoscopic Cholecystectomy (GEN), Opioid Safety, Post Anesthesia Care Activity Restrictions/Additional Instructions: Your incisions have surgical glue on them. Do not peel or pick at it. Do not apply ointments or lotions to it. You may shower. Do not submerge the incisions in tub or pool for 1 week. No lifting, pushing, or pulling over 10 pounds for 2 weeks[address] until you are off prescription pain medication and can use the brake without pain. Discharge Attestations Time Spent in Discharge Care*: less than 30 min Quality Metrics Clinical Quality Measures [ No reported AMI, CVA or VTE this stay] Coding Level of Care Code Acute Chg FW DC note Diagnoses Calculus of gallbladder with acute cholecystitis without obstruction K80.00
--- NOTE | 2022-03-18 11:51 | PC.NURSE ---
Discussed discharge activity, medications and follow up appointments with patient and family. verbalized understanding.
[2022-03-18 11:52] VITALS: BP 108/67; PULSE 84; RESP 18; TEMP 36.9; O2SAT 96
== END 2022-03-18 11:25 | disposition home or self-care (01) ==
LOC: ER 20:34 → MEDSURG 20:49
PROVIDERS: Physician Assistant; Admitting Provider Surgery; Emergency Provider Emergency Medicine; PCP Nurse Practitioner Family; Visit Provider Surgery
PROC: 0FT44ZZ Resection of Gallbladder, Percutaneous Endoscopic Approach (ICD-10-PCS; CPT 47562; principal; 2022-03-17 09:00)
DX: K80.10 Calculus of gallbladder with chronic cholecystitis without obstruction (principal); E66.01 Morbid (severe) obesity due to excess calories; Z68.36 Body mass index [BMI] 36.0-36.9, adult
CPT/HCPCS: 47562; 12345; 36415; 76705; 80053; 81003; 83690; 84703; 85025; 88304; 96374; 96375; 99285; G0378; J0690; J1100; J1170; J2270; J2405; J2543; J2704; J3010; J3490; J7030

== ENCOUNTER 2022-10-19 11:21 | Outpatient (CLI) | payer BC, MEDICAID, SELFPAY ==
--- NOTE | 2022-10-19 11:33 | XR_ITS ---
WS: [id number] XR hip BI 3-4V wo/w pel [id number] REASON FOR EXAM: PAIN IN R HIP FINDINGS: RIGHT HIP: No fracture or focal bone lesion. There is mild narrowing of the joint space with mild subchondral sclerosis and cystic change in the a cetabulum. Mild osteophytosis of the acetabulum. LEFT hip: No fracture or focal bone lesion. There is mild narrowing of the joint space with mild subchondral sclerosis and cystic change in the a cetabulum. Mild osteophytosis of the acetabulum. Small osteophytosis of the femoral head. XR/XR hip BI 3-4V wo/w pel [id number] IMPRESSION: Mild osteoarthritis of the hips as above.
== END 2022-10-19 11:22 | disposition home or self-care (01) ==
LOC: RAD 11:25
PROVIDERS: PCP Nurse Practitioner Family; Visit Provider Nurse Practitioner Family
DX: M16.0 Bilateral primary osteoarthritis of hip (principal)
CPT/HCPCS: 73522

== ENCOUNTER 2022-11-23 12:22 | Outpatient (RCR) | payer OTHER, BC, MEDICAID, SELFPAY | END 2022-12-07 23:59 | disposition home or self-care (01) | LOC: SPT 12:22 | PROVIDERS: PCP Nurse Practitioner Family; Visit Provider Nurse Practitioner Family | DX: M16.9 Osteoarthritis of hip, unspecified (principal) | CPT/HCPCS: 97110; 97161 ==

== ENCOUNTER 2022-12-08 06:00 | Outpatient (RCR) | payer OTHER, BC, MEDICAID, SELFPAY | END 2023-01-06 23:59 | disposition home or self-care (01) | LOC: SPT 06:00 | PROVIDERS: PCP Nurse Practitioner Family; Visit Provider Nurse Practitioner Family | DX: M16.10 Unilateral primary osteoarthritis, unspecified hip (principal) | CPT/HCPCS: 97110 ==

== ENCOUNTER 2023-01-07 06:00 | Outpatient (RCR) | payer OTHER, BC, MEDICAID, SELFPAY | END 2023-01-25 23:59 | disposition home or self-care (01) | LOC: SPT 06:00 | PROVIDERS: PCP Nurse Practitioner Family; Visit Provider Nurse Practitioner Family | DX: M16.10 Unilateral primary osteoarthritis, unspecified hip (principal) | CPT/HCPCS: 97110 ==

== ENCOUNTER → 2023-07-26 10:53 | Outpatient (BNVA) | payer OTHER, SELFPAY | PROVIDERS: PCP Nurse Practitioner Family; Visit Provider Nurse Practitioner Women's Health | DX: O09.92 Supervision of high risk pregnancy, unspecified, second trimester (principal); N92.6 Irregular menstruation, unspecified; Z3A.00 Weeks of gestation of pregnancy not specified | CPT/HCPCS: 83036; 83525; 84146; 84403; 84443 ==

== ENCOUNTER → 2024-02-18 15:52 | Outpatient (BNVA) | payer OTHER, SELFPAY | PROVIDERS: PCP Nurse Practitioner Family; Visit Provider Nurse Practitioner Women's Health | DX: Z01.419 Encounter for gynecological examination (general) (routine) without abnormal findings (principal) | CPT/HCPCS: 87624 ==

== ENCOUNTER 2024-02-28 16:42 | Outpatient (CLI) | payer OTHER, SELFPAY ==
[2024-02-28 17:27] LABS: Estmated Average Glucose 97
[2024-02-28 17:53] LABS: Alanine Aminotransferase 16 U/L (0-33); Albumin Level 4.1 g/dL (3.5-5.2); Alkaline Phosphatase 79 U/L (35-105); Anion Gap 14.6 (5-19); Aspartate Amino Transferase 20 U/L (0-32); Blood Urea Nitrogen 10 mg/dL (6-20); Carbon Dioxide 26 mmol/L (22-29); Chloride 103 mmol/L (98-107); Chol HDL Ratio 3.76 mg/dL (0.0-4.40); Cholesterol 169 mg/dL (0-200); Globulin 3.1 g/dL (1.3-4.6); Glomerular Filtration Rate 115.9 mL/min (90-130); Glucose 92 mg/dL (65-115); HDL Cholesterol 45 mg/dL (60-100); LDL Cholesterol Calculated 77 mg/dL (50-129); LDL HDL Ratio 1.71 RATIO (0.00-3.22); Osmolality Calculated 287 mOsm/kg (285-295); Potassium 4.6 mmol/L (3.5-5.1); Sodium 139 mmol/L (136-145); Total Bilirubin 0.2 mg/dL (0.15-1.2); Total Protein 7.2 g/dL (6.6-8.7); Triglycerides 233 mg/dL (0-150)
[2024-02-28 18:02] LABS: Creatinine Urine, Random 141 mg/dL (28-217); Microalbum Creatinine Ratio Ur 7 mg/dL (0-20); Microalbumin Random Urine 1 ug/dL (0-20)
== END 2024-02-28 16:43 | disposition home or self-care (01) ==
LOC: LAB 16:43
PROVIDERS: PCP Nurse Practitioner Family; Visit Provider Internal Medicine
DX: E88.819 Insulin resistance, unspecified (principal); R63.5 Abnormal weight gain; E28.2 Polycystic ovarian syndrome
CPT/HCPCS: 36415; 80053; 80061; 82044; 83036

== ENCOUNTER 2024-05-02 11:30 | Outpatient (CLI) | payer OTHER, SELFPAY ==
[2024-05-03 08:06] LABS: Insulin ( Reference Lab Test) 27.5 uIU/mL
== END 2024-05-02 11:31 | disposition home or self-care (01) ==
LOC: LAB 11:32
PROVIDERS: PCP Nurse Practitioner Family; Visit Provider Internal Medicine
DX: E88.819 Insulin resistance, unspecified (principal); R63.5 Abnormal weight gain
CPT/HCPCS: 36415; 83525

== ENCOUNTER 2024-08-05 12:25 | Outpatient (CLI) | payer OTHER, SELFPAY ==
[2024-08-05 13:00] LABS: Estmated Average Glucose 103; Hemoglobin A1C 5.2 % (4.0-6.0)
[2024-08-06 11:04] LABS: Insulin ( Reference Lab Test) 144.7 uIU/mL
== END 2024-08-05 12:26 | disposition home or self-care (01) ==
LOC: LAB 08-08 15:43
PROVIDERS: PCP Nurse Practitioner Family; Visit Provider Internal Medicine
DX: E28.2 Polycystic ovarian syndrome (principal); R63.5 Abnormal weight gain; E88.819 Insulin resistance, unspecified
CPT/HCPCS: 36415; 83036; 83525

== ENCOUNTER → 2025-02-23 15:46 | Outpatient (BNVA) | payer OTHER, SELFPAY | PROVIDERS: PCP Nurse Practitioner Family; Visit Provider Nurse Practitioner Women's Health | DX: N90.7 Vulvar cyst (principal) | CPT/HCPCS: 87081 ==